=== PATIENT | female | born 1950 | race Caucasian/White ===

== ENCOUNTER 2016-11-23 05:04 | Observation (INO) ==
[2016-11-23] MEDS ORDERED: 0.9 % Sodium Chloride 1,000 ML IVC ONE (05:28)
[2016-11-23] MEDS ORDERED: Insulin Regular, Human 100 UNIT/ML IV ONE ×2 (05:28→08:24)
[2016-11-23 05:37] LABS: Basophils # 0.1 K/mcL (0.0-0.2); Basophils % 0.8 %; Eosinophils # 0.4 K/mcL (0.0-0.6); Eosinophils % 3.7 %; Hematocrit 41.2 % (35.3-44.9); Hemoglobin 13.2 g/dL (11.5-15.4); Immature Granulocytes % 0.3 % (0-4); Lymphocytes % 20.9 %; Mean Corpuscular Hemoglobin 25.1 pg (28.0-33.3); Mean Corpuscular Volume 78.5 fL (83.0-100.0); Mean Platelet Volume 9.7 fL (9.4-12.4); Monocytes # 0.7 K/mcL (0.0-1.3); Monocytes % 7.6 %; Neutrophils # 6.3 K/mcL (1.6-8.9); Platelet Count 301 K/mcL (140-400); Red Blood Count 5.25 M/mcL (3.82-4.97); Red Cell Distribution Width 13.4 % (11.5-14.5); Segmented Neutrophils % 66.7 %
[2016-11-23 05:53] LABS: Albumin 3.9 g/dL (3.5-5.0); Albumin/Globulin Ratio 1.1 (1.1-2.2); Bilirubin,Total 0.5 mg/dL (0.2-1.2); Calcium 9.6 mg/dL (8.6-10.8); Globulin 3.6 g/dL (2.4-3.5); Potassium 3.6 mEq/L (3.5-4.5); Total Protein 7.5 g/dL (6.0-8.3)
[2016-11-23] MEDS ORDERED: Ibuprofen 600 MG TABLET PO ONE (06:13)
[2016-11-23] MEDS ORDERED: Insulin Human Regular 100 UNIT in 0.9 % Sodium Chloride 100 ML IVC SCH ×2 (06:30→08:00)
[2016-11-23 07:43] LABS: Calcium 8.8 mg/dL (8.6-10.8); Potassium 3.5 mEq/L (3.5-4.5)
[2016-11-23] MEDS ORDERED: 0.9 % Sodium Chloride 500 ML IVC ONE (08:26)
[2016-11-23] MEDS ORDERED: Ketorolac 30 MG/ML VIAL IVP ONE (08:53)
--- NOTE | 2016-11-23 08:53 | Emergency Department Note ---
Disposition Clinical Impression: Uncontrolled diabetes mellitus Disposition: Admitted As Inpatient Condition: Fair Referrals: Maggie Burks CNP [Primary Care Provider] - Forms: ED Satisfaction Letter Time of Disposition: 08:54 Weakness HPI - General Chief complaint: ED Weakness Stated complaint: numbness on L side Time Seen by Provider: 11/23/16 08:47 Source: patient, family, EMS Limitations: no limitations Nursing Notes Reviewed: Yes Vital Signs Reviewed: Yes - History of Present Illness HPI Narrative: 66-year-old female brought to the ED for generalized weakness. This started 2 days ago. She has nausea. She has no appetite. Her blood sugar was elevated at home. She had a kidney stone about a week ago. She just passed it. They gave her some Ultram which made her nauseated and at times confused and dizzy. She still has some flank pain. She has no headache. She complains of occasional numbness of her face. Pain Scale: 4 - Related Data Home Medications Medication Instructions Recorded Confirmed Unable To Obtain [Unable to Obtain] 11/23/16 11/23/16 Allergies Allergy/AdvReac Type Severity Reaction Status Date / Time acetaminophen Allergy Swelling Verified 11/23/16 05:17 [From Contac Day/Night of Allergy/Sinus] Lip/Tongue/Throat dextromethorphan Allergy Swelling Verified 11/23/16 05:17 [From Contac Day/Night of Allergy/Sinus] Lip/Tongue/Throat diphenhydramine Allergy Swelling Verified 11/23/16 05:17 [From Contac Day/Night of Allergy/Sinus] Lip/Tongue/Throat pseudoephedrine Allergy Swelling Verified 11/23/16 05:17 [From Contac Day/Night of Allergy/Sinus] Lip/Tongue/Throat All systems ED: reviewed and negative except as stated. Constitutional: Denies: fever, chills, weakness, weight change Cardiovascular: Denies: chest pain, palpitations, dyspnea on exertion, edema, syncope Respiratory: Denies: cough, dyspnea, wheezes, hemoptysis, stridor Gastrointestinal: Denies: abdominal pain, nausea, vomiting, diarrhea, constipation, hematemesis, melena, hematochezia Genitourinary: Denies: dysuria, frequency, hematuria, discharge Musculoskeletal: Denies: back pain, neck pain, arthralgia, myalgia Integumentary: Denies: rash, abrasion, lesions Neurological: Reports: weakness, numbness. Denies: headache, paresthesias, confusion, abnormal gait, vertigo Psychiatric: Reports: anxiety. Denies: depression, suicidal thoughts, homicidal thoughts, auditory hallucinations, visual hallucinations Endocrine: Reports: fatigue Past Medical History - Past Medical History Medical history: Reports: asthma, diabetes, hyperlipidemia, hypertension, kidney stones, TIA Psychiatric history: Reports: anxiety - Social History Smoking Status: Never smoker Smokeless Tobacco Status: No Alcohol use: Reports: none Drug use: Reports: none Physical Exam - General Limitations: no limitations General appearance: alert, in no apparent distress - Eye Eye exam: Present: normal appearance, PERRL, EOMI - ENT ENT exam: normal exam, normal oropharynx, mucous membranes moist - Neck Neck exam: Present: normal inspection, full ROM, trachea midline - Respiratory Respiratory exam: Present: normal lung sounds bilaterally - Cardiovascular Cardiovascular exam: Present: regular rate, normal rhythm, normal heart sounds - Abdominal Exam Abdominal exam: Present: soft, tenderness, normal bowel sounds. Absent: distention, guarding, rebound, rigidity Abdominal tenderness: Present: diffuse, mild - Extremities Exam Extremities exam: Present: normal inspection, full ROM. Absent: tenderness, pedal edema - Expanded Lower Extremity Exam Neurovascular/Tendon exam: Absent: motor deficit, sensory deficit, tendon deficit - Back Exam Back exam: Present: normal inspection, full ROM. Absent: tenderness - Neurological Exam Neurological exam: Present: alert, oriented X3, CN II-XII intact - Psychiatric Psychiatric exam: Present: flat affect - Skin Skin exam: Present: warm, dry, intact, normal color Course Vital Signs Temperature 98.5 F 11/23/16 05:23 Pulse Rate 75 11/23/16 05:23 Respiratory Rate 14 11/23/16 05:23 Blood Pressure 132/64 11/23/16 05:23 O2 Sat by Pulse Oximetry 97 11/23/16 05:23 Temperature 98.5 F 11/23/16 05:23 Pulse Rate 65 11/23/16 08:46 Respiratory Rate 16 11/23/16 08:46 Blood Pressure 118/74 11/23/16 08:46 O2 Sat by Pulse Oximetry 98 11/23/16 08:46 Oxygen Delivery Oxygen Delivery Room Air Weakness - MDM Narrative Medical decision making narrative: Diagnosis. Uncontrolled diabetes mellitus Slightly acidotic Patient was given 0.9 normal saline 1000 mL bolus 2. IV Insulin R8 units given initially. Additional 3 units of Humulin R given 2 hours later. #2. Generalized fatigue and weakness. They be related to her taking.Ultram CT will be ordered Plan. Patient will be admitted for observation. - Lab Data Lab results reviewed: Yes I reviewed the patient's lab results. Result diagrams: 11/23/16 05:20 11/23/16 07:16 Lab Results 11/23/16 11/23/16 11/23/16 Range/Units 05:10 05:11 05:20 WBC 9.5 (4.3-11.1) K/mcL RBC 5.25 H (3.82-4.97) M/mcL Hgb 13.2 (11.5-15.4) g/dL Hct 41.2 (35.3-44.9) % MCV 78.5 L (83.0-100.0) fL MCH 25.1 L (28.0-33.3) pg MCHC 32.0 (31.6-35.5) g/dL RDW 13.4 (11.5-14.5) % Plt Count 301 (140-400) K/mcL MPV 9.7 (9.4-12.4) fL Immature Gran % 0.3 (0-4) % Seg Neutrophils % 66.7 % Lymphocytes % 20.9 % Monocytes % 7.6 % Eosinophils % 3.7 % Basophils % 0.8 % Neutrophils # 6.3 (1.6-8.9) K/mcL Lymphocytes # 2.0 (0.6-4.6) K/mcL Monocytes # 0.7 (0.0-1.3) K/mcL Eosinophils # 0.4 (0.0-0.6) K/mcL Basophils # 0.1 (0.0-0.2) K/mcL Sodium (136-145) mEq/L Potassium (3.5-4.5) mEq/L Chloride (98-109) mEq/L Carbon Dioxide (19-29) mEq/L BUN (7-20) mg/dL Creatinine (0.57-1.11) mg/dL Est GFR ( Amer) (> 60) Est GFR (Non-Af Amer) (> 60) BUN/Creatinine Ratio (6-26) Glucose (70-99) mg/dL POC Glucose 528 H* 461 H* (58-89) Calculated Osmolality (280-300) Calcium (8.6-10.8) mg/dL Total Bilirubin (0.2-1.2) mg/dL AST (5-34) Units/L ALT (0-55) Units/L Alkaline Phosphatase (38-126) Units/L Serum Total Protein (6.0-8.3) g/dL Albumin (3.5-5.0) g/dL Globulin (2.4-3.5) g/dL Albumin/Globulin Ratio (1.1-2.2) 11/23/16 11/23/16 11/23/16 Range/Units 05:20 06:45 06:47 WBC (4.3-11.1) K/mcL RBC (3.82-4.97) M/mcL Hgb (11.5-15.4) g/dL Hct (35.3-44.9) % MCV (83.0-100.0) fL MCH (28.0-33.3) pg MCHC (31.6-35.5) g/dL RDW (11.5-14.5) % Plt Count (140-400) K/mcL MPV (9.4-12.4) fL Immature Gran % (0-4) % Seg Neutrophils % % Lymphocytes % % Monocytes % % Eosinophils % % Basophils % % Neutrophils # (1.6-8.9) K/mcL Lymphocytes # (0.6-4.6) K/mcL Monocytes # (0.0-1.3) K/mcL Eosinophils # (0.0-0.6) K/mcL Basophils # (0.0-0.2) K/mcL Sodium 136 (136-145) mEq/L Potassium 3.6 (3.5-4.5) mEq/L Chloride 103 (98-109) mEq/L Carbon Dioxide 18 L (19-29) mEq/L BUN 18 (7-20) mg/dL Creatinine 1.49 H (0.57-1.11) mg/dL Est GFR ( Amer) 42 L (> 60) Est GFR (Non-Af Amer) 35 L (> 60) BUN/Creatinine Ratio 12 (6-26) Glucose 480 H (70-99) mg/dL POC Glucose 327 H 286 H (58-89) Calculated Osmolality 305 H (280-300) Calcium 9.6 (8.6-10.8) mg/dL Total Bilirubin 0.5 (0.2-1.2) mg/dL AST 16 (5-34) Units/L ALT 22 (0-55) Units/L Alkaline Phosphatase 74 (38-126) Units/L Serum Total Protein 7.5 (6.0-8.3) g/dL Albumin 3.9 (3.5-5.0) g/dL Globulin 3.6 H (2.4-3.5) g/dL Albumin/Globulin Ratio 1.1 (1.1-2.2) 11/23/16 Range/Units 07:16 WBC (4.3-11.1) K/mcL RBC (3.82-4.97) M/mcL Hgb (11.5-15.4) g/dL Hct (35.3-44.9) % MCV (83.0-100.0) fL MCH (28.0-33.3) pg MCHC (31.6-35.5) g/dL RDW (11.5-14.5) % Plt Count (140-400) K/mcL MPV (9.4-12.4) fL Immature Gran % (0-4) % Seg Neutrophils % % Lymphocytes % % Monocytes % % Eosinophils % % Basophils % % Neutrophils # (1.6-8.9) K/mcL Lymphocytes # (0.6-4.6) K/mcL Monocytes # (0.0-1.3) K/mcL Eosinophils # (0.0-0.6) K/mcL Basophils # (0.0-0.2) K/mcL Sodium 138 (136-145) mEq/L Potassium 3.5 (3.5-4.5) mEq/L Chloride 107 (98-109) mEq/L Carbon Dioxide 19 (19-29) mEq/L BUN 17 (7-20) mg/dL Creatinine 1.24 H (0.57-1.11) mg/dL Est GFR ( Amer) 52 L (> 60) Est GFR (Non-Af Amer) 43 L (> 60) BUN/Creatinine Ratio 14 (6-26) Glucose 314 H (70-99) mg/dL POC Glucose (58-89) Calculated Osmolality 300 (280-300) Calcium 8.8 (8.6-10.8) mg/dL Total Bilirubin (0.2-1.2) mg/dL AST (5-34) Units/L ALT (0-55) Units/L Alkaline Phosphatase (38-126) Units/L Serum Total Protein (6.0-8.3) g/dL Albumin (3.5-5.0) g/dL Globulin (2.4-3.5) g/dL Albumin/Globulin Ratio (1.1-2.2)
[2016-11-23] MEDS ORDERED: Ibuprofen 400 MG TABLET PO PRN (09:02)
[2016-11-23] MEDS ORDERED: Ondansetron 4 MG/2 ML VIAL IVP PRN (09:02)
[2016-11-23] MEDS ORDERED: Naloxone 0.4 MG/ML INJ IVP PRN (09:02)
[2016-11-23] MEDS ORDERED: Dextrose Gel 15 GM PO PRN ×2 (09:05)
[2016-11-23] MEDS ORDERED: D5% in Water 1,000 ML IVC PRN (09:05)
[2016-11-23] MEDS ORDERED: *HR* Dextrose 50 % in Water (Syg) 50 ML SYRINGE IVP PRN (09:05)
[2016-11-23 09:57] LABS: Calcium 8.6 mg/dL (8.6-10.8); Potassium 3.8 mEq/L (3.5-4.5)
[2016-11-23] MEDS: 0.9 % Sodium Chloride 1,000 ML IVC SCH ×2 (11:22→17:37)
[2016-11-23] MEDS: Insulin LISPRO 300 UNITS/3 ML VIAL SQ SCH ×2 (13:20→17:38)
--- NOTE | 2016-11-23 14:52 | Internal Med History&Physical ---
Date of Encounter: 11/23/16 Time of Encounter: 14:50 Assessment and Plan (1) Weakness Current visit: Yes Longer have to have PT see her to generally see what her gait disturbance is. (2) Uncontrolled diabetes mellitus Current visit: Yes Status: Acute Aggressive control of blood sugar diet and fluids for the time being Qualifiers: Diabetes mellitus type: type 2 Qualified Code(s): E11.65 - Type 2 diabetes mellitus with hyperglycemia Internal Medicine - H&P: HPI Chief complaint: Patient stayed weak she states she fell lost her balance and hit her face b Admitted From: Home Plans for Post Hospital Care: Home History of present illness: Ms. Quinones is a 66 year old female Blood sugars were very high at the time. Past Med Surg Social Fam HX - Past Medical History Medical history: asthma, diabetes, hyperlipidemia, hypertension, kidney stones, TIA Psychiatric history: anxiety, depression - Past Surgical History Surgical History: appendectomy, hysterectomy - Social History Smoking Status: Never smoker Smokeless Tobacco Status: No Alcohol use: none Drug use: none - Family History Mother Living Status: Cause of : diabetes Father Living Status: Internal Medicine - H&P: Meds Atorvastatin [Lipitor] 20 mg PO HS 11/23/16 [History] Ciprofloxacin [Cipro] 500 mg PO BID 11/23/16 [History] Gabapentin [Neurontin] 300 mg PO TID 11/23/16 [History] Insulin Glargine,Hum.rec.anlog [Lantus Solostar] 90 unit SQ QAM 11/23/16 [ History] Losartan/HCTZ [Hyzaar 50-12.5 Tablet] 1 each PO DAILY 11/23/16 [History] Metformin [Glucophage] 1,000 mg PO BIDWM 11/23/16 [History] Ropinirole HCl [Requip] 0.25 mg PO TID 11/23/16 [History] Allergies acetaminophen [From Contac Day/Night Allergy/Sinus] Allergy (Verified 11/23/16 05:17) Swelling of Lip/Tongue/Throat dextromethorphan [From Contac Day/Night Allergy/Sinus] Allergy (Verified 05:17) Swelling of Lip/Tongue/Throat diphenhydramine [From Contac Day/Night Allergy/Sinus] Allergy (Verified 05:17) Swelling of Lip/Tongue/Throat pseudoephedrine [From Contac Day/Night Allergy/Sinus] Allergy (Verified 05:17) Swelling of Lip/Tongue/Throat All Systems PM: A 10-system review of systems was performed and is negative for pertinent findings except as documented above in the HPI. - Constitutional Vitals: Temp Pulse Resp BP Pulse Ox 97.6 F 80 20 147/92 97 11/23/16 10:35 11/23/16 10:35 11/23/16 10:35 11/23/16 10:35 11/23/16 10:35 - Head Head exam: Present: atraumatic, normal inspection, normocephalic - Respiratory Respiratory exam: Present: CTAB. Absent: accessory muscle use, rales, rhonchi, wheezes - Cardiovascular Cardiovascular exam: Present: RRR, +S1, +S2. Absent: diastolic murmur, gallop, rubs, systolic murmur - GI/Abdominal GI/Abdominal exam: Present: normal bowel sounds, soft, no peritoneal signs. Absent: distended, tenderness Internal Med - H&P Results - Labs CBC & Chem 7: 11/23/16 05:20 11/23/16 09:30 Labs: BMP 11/23/16 09:30 Sodium 138 Potassium 3.8 Chloride 110 H Carbon Dioxide 18 L BUN 17 Creatinine 1.16 H Glucose 242 H Calcium 8.6
[2016-11-23] MEDS ORDERED: Gabapentin 300 MG CAPSULE PO SCH (15:00)
[2016-11-23] MEDS ORDERED: *HR* Metformin 500 MG TABLET PO SCH (17:00)
[2016-11-23] MEDS: Famotidine 20 MG/2 ML VIAL IVP SCH (18:02)
--- NOTE | 2016-11-23 18:12 | Electrocardiograph Report ---
[address] [place] [address] Test Date: 2016-11-23 Pat Name: Edward Quinones Department: 2000 Room: 112 Gender: F Photo Retoucher: JUANA : 1950 Requested By: Broderick Shields Order Number: [id number] Reading MD: Edil Cool MD Measurements Intervals [place] Rate: 66 P: 21 WY: 147 QRS: -17 QRSD: 100 T: 52 QT: 417 QTc: 431 Interpretive Statements SINUS RHYTHM POSSIBLE ANTERIOR MYOCARDIAL INFARCTION, PROBABLY OLD INFERIOR MYOCARDIAL INFARCTION, PROBABLY OLD Electronically Signed On 11-23-2016 18:10:21 EDT by Edil Cool MD
[2016-11-23] MEDS: Gabapentin 300 MG CAPSULE PO SCH (21:22)
[2016-11-24] MEDS: Insulin LISPRO 300 UNITS/3 ML VIAL SQ SCH ×3 (03:53→11:48)
[2016-11-24] MEDS: Famotidine 20 MG/2 ML VIAL IVP SCH (05:10)
[2016-11-24 05:40] LABS: Basophils # 0.1 K/mcL (0.0-0.2); Basophils % 0.9 %; Eosinophils # 0.5 K/mcL (0.0-0.6); Eosinophils % 5.6 %; Hematocrit 34.9 % (35.3-44.9); Immature Granulocytes % 0.2 % (0-4); Lymphocytes # 3.4 K/mcL (0.6-4.6); Lymphocytes % 38.7 %; Mean Corpuscular HGB Conc 31.8 g/dL (31.6-35.5); Mean Corpuscular Hemoglobin 25.2 pg (28.0-33.3); Mean Corpuscular Volume 79.3 fL (83.0-100.0); Mean Platelet Volume 10.8 fL (9.4-12.4); Monocytes # 0.5 K/mcL (0.0-1.3); Neutrophils # 4.3 K/mcL (1.6-8.9); Red Cell Distribution Width 13.8 % (11.5-14.5); Segmented Neutrophils % 48.6 %
[2016-11-24 05:46] LABS: Hemoglobin 11.1 g/dL (11.5-15.4); Platelet Count 204 K/mcL (140-400)
[2016-11-24 05:49] LABS: BUN/Creatinine Ratio 15 (6-26); Blood Urea Nitrogen 13 mg/dL (7-20); Calcium 8.7 mg/dL (8.6-10.8); Carbon Dioxide 17 mEq/L (19-29); Chloride 113 mEq/L (98-109); Glucose 156 mg/dL (70-99); Osmolality,Calculated 293 (280-300); Potassium 3.6 mEq/L (3.5-4.5); Sodium 140 mEq/L (136-145); eGFR For African Americans > 60 (> 60); eGFR For Non-African Americans > 60 (> 60)
[2016-11-24 06:55] VITALS: BP 137/62
[2016-11-24 07:08] LABS: Bilirubin,Urine Negative (Negative); Blood,Urine Negative (Negative); Clarity,Urine Clear (Clear); Color,Urine Yellow (Yellow); Glucose,Urine (UA) Normal (Normal); Ketones,Urine Negative (Negative); Leukocyte Esterase,Urine Small (Negative); Nitrite,Urine Negative (Negative); PH,Urine 6.5 pH Units (5.0-8.0); Protein,Urine Trace mg/dL (Neg-Trace); Urobilinogen,Urine Normal (Normal)
[2016-11-24 07:17] LABS: Bacteria,Urine Moderate per hpf (None-Few); Squamous Epithelial Cell,Urine Many per lpf (None-Few)
[2016-11-24 07:18] LABS: Mucus,Urine Few (Few); RBC,Urine 0-3 per hpf (0-3)
[2016-11-24 07:21] LABS: Transitional Epi Cells,Urine Few per hpf (None-Few)
[2016-11-24] MEDS ORDERED: *HR* Metformin 500 MG TABLET PO SCH (08:00)
[2016-11-24] MEDS: Gabapentin 300 MG CAPSULE PO SCH ×2 (08:26→15:14)
[2016-11-24] MEDS ORDERED: Insulin DETEMIR 100 UNIT/ML X5UNITS SQ SCH ×2 (09:00)
[2016-11-24] MEDS ORDERED: Losartan/HCTZ 50-12.5 TABLET PO SCH ×2 (09:00)
[2016-11-24 09:06] LABS: Hemoglobin A1C 8.8 %
--- NOTE | 2016-11-24 11:35 | Internal Med Progress Note ---
Date of Encounter: 11/24/16 Time of Encounter: 11:33 - Assessment and plan (1) Weakness Current Visit: Yes Assessment and plan: The patient is weak and states that she does have Parkinson's. We will try to increase her strength and ambulatory ability (2) Uncontrolled diabetes mellitus Current Visit: Yes Status: Acute Assessment and plan: Lunch sugars while though not perfect or much improved from admission was 156 this a.m.. Qualifiers: Diabetes mellitus type: type 2 Qualified Code(s): E11.65 - Type 2 diabetes mellitus with hyperglycemia - Time Spent With Patient less than 15 minutes - Subjective Interval history: Patient is high risk for falls. She was seen by PT and this morning and was noted to be high risk and will be transferred to [facility] for PT and OT. - Constitutional Vitals: Temp Pulse Resp BP Pulse Ox 98.0 F 55 18 137/62 97 11/24/16 06:54 11/24/16 06:54 11/24/16 06:54 11/24/16 06:54 11/24/16 06:54 - Head Head exam: Present: atraumatic, normocephalic - Neck Neck exam general surgery: Present: supple, trachea midline. Absent: lymphadenopathy - Respiratory Respiratory exam: Present: CTAB. Absent: accessory muscle use, rales, rhonchi, wheezes - Cardiovascular Cardiovascular exam: Present: RRR, +S1, +S2. Absent: diastolic murmur, gallop, rubs, systolic murmur - GI/Abdominal GI/Abdominal exam: Present: normal bowel sounds, soft, no peritoneal signs. Absent: distended, tenderness Internal Medicine: Result - Labs CBC & Chem 7: 11/24/16 05:00 11/24/16 05:00 Labs: Short CBC 11/24/16 Range/Units 05:00 WBC 8.9 (4.3-11.1) K/mcL Hgb 11.1 L D (11.5-15.4) g/dL Hct 34.9 L (35.3-44.9) % Plt Count 204 (140-400) K/mcL Neutrophils # 4.3 (1.6-8.9) K/mcL BMP 11/24/16 05:00 Sodium 140 Potassium 3.6 Chloride 113 H Carbon Dioxide 17 L BUN 13 Creatinine 0.88 Glucose 156 H Calcium 8.7 Urine 11/24/16 Range/Units Unknown Urine Color Yellow (Yellow) Urine Clarity Clear (Clear) Urine pH 6.5 (5.0-8.0) pH Units Ur Specific [place] 1.010 (1.010-1.025) Urine Protein Trace (Neg-Trace) mg/dL Urine Glucose (UA) Normal (Normal) mg/dL UTI is currently pending and they recommended sensitivity. - VTE Documentation of Mechanical Device: Graduated compression elastic hosiery Consult Discharge Plan - Plan Referrals: Maggie Burks SAMPLE TAKER OPERATOR [Primary Care Provider] -
[2016-11-24] MEDS ORDERED: *HR* OxyCODONE Immed Rel 5 MG TABLET PO PRN (14:44)
[2016-11-24] MEDS ORDERED: Insulin LISPRO 300 UNITS/3 ML VIAL SQ SCH (17:00)
== END 2016-11-24 16:58 | disposition other institution (70) ==
LOC: EMEROOGRE 05:04 → INPGRE 05:04
PROVIDERS: ADMIT Internal Medicine; ATTEND Internal Medicine

== ENCOUNTER 2016-11-24 16:01 | Inpatient (IN) ==
[2016-11-24] MEDS ORDERED: *HR* Dextrose 50 % in Water (Syg) 50 ML SYRINGE IVP PRN (17:44)
[2016-11-24] MEDS ORDERED: Dextrose Gel 15 GM PO PRN ×2 (17:44)
[2016-11-24] MEDS ORDERED: D5% in Water 1,000 ML IVC PRN (17:44)
[2016-11-24] MEDS ORDERED: Naloxone 0.4 MG/ML INJ IVP PRN (17:57)
[2016-11-24] MEDS: Insulin LISPRO 300 UNITS/3 ML VIAL SQ SCH ×2 (18:32→20:11)
[2016-11-24] MEDS: *HR* Metformin 500 MG TABLET PO SCH (18:40)
[2016-11-24] MEDS: Gabapentin 300 MG CAPSULE PO SCH (20:10)
[2016-11-24] MEDS: Ondansetron ODT 4 MG TAB.RAPDIS SL PRN (20:11)
[2016-11-24] MEDS: *HR* OxyCODONE Immed Rel 5 MG TABLET PO PRN (22:24)
[2016-11-25] MEDS: *HR* OxyCODONE Immed Rel 5 MG TABLET PO PRN ×3 (06:20→23:42)
[2016-11-25] MEDS: Losartan/HCTZ 50-12.5 TABLET PO SCH (08:32)
[2016-11-25] MEDS: *HR* Metformin 500 MG TABLET PO SCH ×2 (08:33→16:51)
[2016-11-25] MEDS: Gabapentin 300 MG CAPSULE PO SCH ×3 (08:33→20:47)
[2016-11-25] MEDS: Insulin LISPRO 300 UNITS/3 ML VIAL SQ SCH ×4 (08:35→20:47)
--- NOTE | 2016-11-25 09:22 | Internal Med Progress Note ---
Date of Encounter: 11/25/16 Time of Encounter: 09:21 - Assessment and plan (1) Weakness Current Visit: Yes Status: Chronic Assessment and plan: Medical deconditioning secondary to dehydration. Urinary tract infection. Showed significant improvement since ED admission. PTOT to work on improving strength, endurance, balance and transfer. - Time Spent With Patient less than 15 minutes - Subjective Interval history: Feels much better today. More strength. Still complains of the same flank pain. No shortness of breath. No chest pain. - Constitutional Vitals: Temp Pulse Resp BP Pulse Ox 97.4 F L 57 20 133/62 97 11/25/16 07:13 11/25/16 07:13 11/25/16 07:13 11/25/16 07:13 11/25/16 07:13 General appearance: Present: A&O X 3, pleasant, no acute distress - Respiratory Respiratory exam: Present: CTAB. Absent: accessory muscle use, rales, rhonchi, wheezes - Cardiovascular Cardiovascular exam: Present: RRR, +S1, +S2. Absent: diastolic murmur, gallop, rubs, systolic murmur - GI/Abdominal GI/Abdominal exam: Present: normal bowel sounds, soft, no peritoneal signs. Absent: distended, tenderness - Extremities Exam Extremities exam: Present: warm, radial pulses palpable and symetrical. Absent : calf tenderness, cyanotic, pedal edema - Neurological Exam Neurological exam: Present: CN II-XII intact, oriented X3, no focal deficits. Absent: pronater drift, facial droop, speech deficit - VTE Documentation of Mechanical Device: Graduated compression elastic hosiery Consult Discharge Plan - Plan Referrals: Maggie Burks, VOLUNTEER SPECIALIST [Primary Care Provider] -
[2016-11-25] MEDS: Insulin DETEMIR 100 UNIT/ML X5UNITS SQ SCH (11:32)
[2016-11-25] MEDS: Ibuprofen 400 MG TABLET PO PRN (11:32)
[2016-11-25] MEDS: Ondansetron ODT 4 MG TAB.RAPDIS SL PRN (15:20)
[2016-11-26] MEDS: Ibuprofen 400 MG TABLET PO PRN ×2 (04:21→14:19)
[2016-11-26] MEDS: *HR* Metformin 500 MG TABLET PO SCH ×2 (07:59→18:12)
[2016-11-26] MEDS: *HR* OxyCODONE Immed Rel 5 MG TABLET PO PRN ×2 (07:59→20:34)
[2016-11-26] MEDS: Gabapentin 300 MG CAPSULE PO SCH ×3 (08:00→20:34)
[2016-11-26] MEDS: Losartan/HCTZ 50-12.5 TABLET PO SCH (08:00)
[2016-11-26] MEDS: Insulin LISPRO 300 UNITS/3 ML VIAL SQ SCH ×4 (08:00→20:34)
--- NOTE | 2016-11-26 10:42 | Internal Med Progress Note ---
Date of Encounter: 11/26/16 Time of Encounter: 10:39 - Assessment and plan (1) Parkinsons Current Visit: Yes Status: Acute Assessment and plan: I can find no documentation of Parkinson's on the records. (2) Uncontrolled diabetes mellitus Current Visit: No Status: Acute Assessment and plan: sugar better control Qualifiers: Diabetes mellitus type: type 2 Qualified Code(s): E11.65 - Type 2 diabetes mellitus with hyperglycemia (3) Weakness Current Visit: Yes Status: Chronic Assessment and plan: Generalized weakness C PT OT valves - Time Spent With Patient less than 15 minutes - Subjective Interval history: No complaints of some left sided flank pain. I find no previous information about kidney stones. Also not see C and s from her urine. - Constitutional Vitals: Temp Pulse Resp BP Pulse Ox 98.3 F 63 16 108/58 93 11/26/16 07:33 11/26/16 07:33 11/26/16 07:33 11/26/16 07:33 11/26/16 07:33 General appearance: Present: A&O X 3, pleasant, no acute distress - Head Head exam: Present: atraumatic, normal inspection, normocephalic - Neck Neck exam general surgery: Present: supple, trachea midline. Absent: lymphadenopathy - Respiratory Respiratory exam: Present: CTAB. Absent: accessory muscle use, rales, rhonchi, wheezes - Cardiovascular Cardiovascular exam: Present: RRR, +S1, +S2. Absent: diastolic murmur, gallop, rubs, systolic murmur Internal Medicine: Result - Labs Labs: Pending - VTE Documentation of Mechanical Device: Graduated compression elastic hosiery Consult Discharge Plan - Plan Referrals: Maggie Burks, DEPUTY SHERIFF GENERALIST [Primary Care Provider] -
[2016-11-26] MEDS: Insulin DETEMIR 100 UNIT/ML X5UNITS SQ SCH (14:19)
[2016-11-26] MEDS: Ondansetron ODT 4 MG TAB.RAPDIS SL PRN (14:35)
[2016-11-27] MEDS: Ondansetron ODT 4 MG TAB.RAPDIS SL PRN
[2016-11-27] MEDS: Ibuprofen 400 MG TABLET PO PRN ×2 (02:32→10:35)
[2016-11-27 06:14] LABS: Basophils # 0.1 K/mcL (0.0-0.2); Basophils % 0.7 %; Eosinophils # 0.5 K/mcL (0.0-0.6); Eosinophils % 4.8 %; Hematocrit 36.9 % (35.3-44.9); Hemoglobin 11.9 g/dL (11.5-15.4); Immature Granulocytes % 0.3 % (0-4); Lymphocytes # 3.5 K/mcL (0.6-4.6); Lymphocytes % 35.2 %; Mean Corpuscular HGB Conc 32.2 g/dL (31.6-35.5); Mean Corpuscular Hemoglobin 25.8 pg (28.0-33.3); Mean Platelet Volume 10.3 fL (9.4-12.4); Monocytes # 0.6 K/mcL (0.0-1.3); Monocytes % 6.4 %; Neutrophils # 5.1 K/mcL (1.6-8.9); Platelet Count 275 K/mcL (140-400); Red Blood Count 4.61 M/mcL (3.82-4.97); Red Cell Distribution Width 13.5 % (11.5-14.5); Segmented Neutrophils % 52.6 %
[2016-11-27 06:22] LABS: BUN/Creatinine Ratio 19 (6-26); Blood Urea Nitrogen 17 mg/dL (7-20); Calcium 8.8 mg/dL (8.6-10.8); Carbon Dioxide 21 mEq/L (19-29); Chloride 110 mEq/L (98-109); Glucose 156 mg/dL (70-99); Osmolality,Calculated 297 (280-300); Potassium 3.5 mEq/L (3.5-4.5); Sodium 141 mEq/L (136-145); eGFR For African Americans > 60 (> 60); eGFR For Non-African Americans > 60 (> 60)
[2016-11-27] MEDS: Insulin LISPRO 300 UNITS/3 ML VIAL SQ SCH ×4 (08:19→20:36)
[2016-11-27] MEDS: Gabapentin 300 MG CAPSULE PO SCH ×3 (08:29→20:34)
[2016-11-27] MEDS: *HR* Metformin 500 MG TABLET PO SCH ×2 (08:29→17:39)
[2016-11-27] MEDS: Losartan/HCTZ 50-12.5 TABLET PO SCH (08:29)
[2016-11-27] MEDS: *HR* OxyCODONE Immed Rel 5 MG TABLET PO PRN ×3 (08:29→20:35)
[2016-11-27] MEDS: Insulin DETEMIR 100 UNIT/ML X5UNITS SQ SCH (08:32)
--- NOTE | 2016-11-27 14:27 | Internal Med Progress Note ---
Date of Encounter: 11/27/16 Time of Encounter: 14:27 - Assessment and plan (1) Parkinsons Current Visit: Yes Status: Acute Assessment and plan: There is no documented history of Parkinson's off to follow-up on this. Patient was ambulating in the [place] today with OT and did very well (2) Uncontrolled diabetes mellitus Current Visit: No Status: Acute Assessment and plan: Her blood sugars improve Qualifiers: Diabetes mellitus type: type 2 Qualified Code(s): E11.65 - Type 2 diabetes mellitus with hyperglycemia (3) Weakness Current Visit: Yes Status: Chronic Assessment and plan: Weaknesses improved in the staff reports to me there was no falling or teetering and her balance was good - Time Spent With Patient less than 15 minutes - Subjective Interval history: Patient is complaining of some flank pain and will give her a pain pill. And I checked the report from the laboratory and there were no organisms noted in the urine. - Constitutional Vitals: Temp Pulse Resp BP Pulse Ox 98.1 F 59 16 125/61 96 11/27/16 07:38 11/27/16 07:38 11/27/16 07:38 11/27/16 07:38 11/27/16 07:38 General appearance: Present: A&O X 3, pleasant, no acute distress - Head Head exam: Present: atraumatic, normal inspection, normocephalic - Neck Neck exam general surgery: Present: supple, trachea midline. Absent: lymphadenopathy - Respiratory Respiratory exam: Present: CTAB. Absent: accessory muscle use, rales, rhonchi, wheezes - Cardiovascular Cardiovascular exam: Present: RRR, +S1, +S2. Absent: diastolic murmur, gallop, rubs, systolic murmur - GI/Abdominal GI/Abdominal exam: Present: normal bowel sounds, soft, no peritoneal signs. Absent: distended, tenderness Internal Medicine: Result - Labs CBC & Chem 7: 11/27/16 04:51 11/27/16 04:51 Labs: Short CBC 11/27/16 Range/Units 04:51 WBC 9.8 (4.3-11.1) K/mcL Hgb 11.9 (11.5-15.4) g/dL Hct 36.9 (35.3-44.9) % Plt Count 275 (140-400) K/mcL Neutrophils # 5.1 (1.6-8.9) K/mcL BMP 11/27/16 04:51 Sodium 141 Potassium 3.5 Chloride 110 H Carbon Dioxide 21 BUN 17 Creatinine 0.88 Glucose 156 H Calcium 8.8 Lab is stable and the blood sugars are much improved - VTE Documentation of Mechanical Device: Graduated compression elastic hosiery Consult Discharge Plan - Plan Referrals: Maggie Burks, PARENT PARTNER [Primary Care Provider] -
[2016-11-27] MEDS: Famotidine 20 MG TABLET PO PRN (20:38)
[2016-11-28] MEDS: *HR* OxyCODONE Immed Rel 5 MG TABLET PO PRN ×5 (00:54→20:14)
[2016-11-28] MEDS: Insulin LISPRO 300 UNITS/3 ML VIAL SQ SCH ×4 (07:28→20:47)
[2016-11-28] MEDS: Gabapentin 300 MG CAPSULE PO SCH ×3 (07:52→20:48)
[2016-11-28] MEDS: Losartan/HCTZ 50-12.5 TABLET PO SCH (07:52)
[2016-11-28] MEDS: *HR* Metformin 500 MG TABLET PO SCH ×2 (07:52→16:23)
[2016-11-28] MEDS: Insulin DETEMIR 100 UNIT/ML X5UNITS SQ SCH (07:53)
[2016-11-28 08:45] LABS: Hemoglobin A1C 8.7 %
--- NOTE | 2016-11-28 13:18 | Internal Med Progress Note ---
Date of Encounter: 11/28/16 Time of Encounter: 13:16 - Assessment and plan (1) Parkinsons Current Visit: Yes Status: Acute Assessment and plan: I am not sure she has Parkinson's care for documentation. I will recommend neurology consult after discharge (2) Uncontrolled diabetes mellitus Current Visit: No Status: Acute Assessment and plan: Sugars are much better controlled. Hemoglobin A1c is greater than 8 I tend to think patient does not adhere to any diet at home. Sugars have gone from 4-500 down to as low as 100.. Qualifiers: Diabetes mellitus type: type 2 Qualified Code(s): E11.65 - Type 2 diabetes mellitus with hyperglycemia (3) Weakness Current Visit: Yes Status: Chronic Assessment and plan: Much improvement - Time Spent With Patient less than 15 minutes - Subjective Interval history: She is ambulating in the [place] smiling and feeling much better. She is progressed very rapidly. Anticipate discharge by end of week. - Constitutional Vitals: Temp Pulse Resp BP Pulse Ox 97.4 F L 55 16 110/64 93 11/28/16 07:00 11/28/16 07:00 11/28/16 07:00 11/28/16 07:00 11/28/16 07:00 General appearance: Present: A&O X 3, pleasant, no acute distress - Head Head exam: Present: normal inspection - Neck Neck exam general surgery: Present: supple, trachea midline. Absent: lymphadenopathy - Respiratory Respiratory exam: Present: CTAB. Absent: accessory muscle use, rales, rhonchi, wheezes - Cardiovascular Cardiovascular exam: Present: RRR, +S1, +S2. Absent: diastolic murmur, gallop, rubs, systolic murmur - GI/Abdominal GI/Abdominal exam: Present: normal bowel sounds, soft, no peritoneal signs. Absent: distended, tenderness Internal Medicine: Result - Labs CBC & Chem 7: 11/27/16 04:51 11/27/16 04:51 Labs: Lab is stable - VTE Documentation of Mechanical Device: Graduated compression elastic hosiery Consult Discharge Plan - Plan Referrals: Maggie Burks, MONIQUE [Primary Care Provider] -
[2016-11-28] MEDS: Ondansetron ODT 4 MG TAB.RAPDIS SL PRN (20:16)
[2016-11-29] MEDS: *HR* OxyCODONE Immed Rel 5 MG TABLET PO PRN ×5 (02:15→20:46)
[2016-11-29] MEDS: Insulin LISPRO 300 UNITS/3 ML VIAL SQ SCH ×4 (07:24→20:47)
[2016-11-29] MEDS: Losartan/HCTZ 50-12.5 TABLET PO SCH (09:00)
[2016-11-29] MEDS: *HR* Metformin 500 MG TABLET PO SCH ×2 (09:00→16:39)
[2016-11-29] MEDS: Gabapentin 300 MG CAPSULE PO SCH ×3 (09:00→20:47)
[2016-11-29] MEDS: Insulin DETEMIR 100 UNIT/ML X5UNITS SQ SCH (09:22)
--- NOTE | 2016-11-29 14:08 | Internal Med Progress Note ---
Date of Encounter: 11/29/16 Time of Encounter: 14:06 - Assessment and plan (1) Parkinsons Current Visit: Yes Status: Acute Assessment and plan: No evidence of this. (2) Uncontrolled diabetes mellitus Current Visit: No Status: Acute Assessment and plan: Blood sugars have been much better here so I suspect part of this is indiscretion in her diet Qualifiers: Diabetes mellitus type: type 2 Qualified Code(s): E11.65 - Type 2 diabetes mellitus with hyperglycemia (3) Weakness Current Visit: Yes Status: Chronic Assessment and plan: H is ambulating length of the [place] several times a day the weakness is much improved - Time Spent With Patient less than 15 minutes - Subjective Interval history: She is ambulating in the [place] smiling and feeling much better. She is progressed very rapidly. Anticipate discharge by end of week. Staff decided today PCC should be discharged tomorrow we will get her home health. Staff psychologist recommended to follow-up with counseling. We will call [facility] for an appointment - Constitutional Vitals: Temp Pulse Resp BP Pulse Ox 97.2 F L 65 18 123/59 96 11/29/16 07:00 11/29/16 07:00 11/29/16 07:00 11/29/16 07:00 11/29/16 07:00 General appearance: Present: A&O X 3, pleasant, no acute distress - Head Head exam: Present: atraumatic, normocephalic - Neck Neck exam general surgery: Present: supple, trachea midline. Absent: lymphadenopathy - Respiratory Respiratory exam: Present: CTAB. Absent: accessory muscle use, rales, rhonchi, wheezes - Cardiovascular Cardiovascular exam: Present: RRR, +S1, +S2. Absent: diastolic murmur, gallop, rubs, systolic murmur - GI/Abdominal GI/Abdominal exam: Present: normal bowel sounds, soft, no peritoneal signs. Absent: distended, tenderness Internal Medicine: Result - Labs CBC & Chem 7: 11/27/16 04:51 11/27/16 04:51 Labs: Labs stable - VTE Documentation of Mechanical Device: Graduated compression elastic hosiery Consult Discharge Plan - Plan Referrals: Maggie Burks, INTERCEPTOR OPERATOR [Primary Care Provider] -
--- NOTE | 2016-11-29 16:40 | Psychological Evaluation ---
Date of Encounter: 11/29/16 Time of Encounter: 11:30 History of Present Illness History of present illness: Ms. Quinones is a 66 year old female admitted to [facility] to address medical deconditioning/weakness secondary to dehydration and urinary tract infection. She was seen on this date to assess her current emotional status and possible psychological factors affecting her medical status. Past Medical History Medical history: Significant for uncontrolled diabetes. Ms. Quinones provided a more extensive history of medical problems. She reported that she suffered a stroke and that is the reason she has been hospitalized. She also reported that she has Parkinson's Disease and has been passing kidney stones. She reported that current symptoms of weakness and inability to move her legs began last at 3:30am. She reported that she was unable to walk, fell and injured her left foot and her left shoulder. Since admission, she has made gains significant improvement in her physical functioning. - Psychiatric History Additional Psychiatric History: Ms. Quinones denied a history of psychiatric hospitalization but acknowledged a long history of mental health counseling. She is not currently seeing a therapist but reported a significant amount of stress and limited social support. 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 She stated that they had been attending the quarterly Stroke Support Group through [facility] and she found this very helpful. No known history of family psychiatric or mental health disorders. Home Medications and Allergies Atorvastatin [Lipitor] 20 mg PO HS 11/23/16 [History] Ciprofloxacin [Cipro] 500 mg PO BID 11/23/16 [History] Gabapentin [Neurontin] 300 mg PO TID 11/23/16 [History] Insulin Glargine,Hum.rec.anlog [Lantus Solostar] 90 unit SQ QAM 11/23/16 [ History] Losartan/HCTZ [Hyzaar 50-12.5 Tablet] 1 each PO DAILY 11/23/16 [History] Metformin [Glucophage] 1,000 mg PO BIDWM 11/23/16 [History] Ropinirole HCl [Requip] 0.25 mg PO TID 11/23/16 [History] Allergies acetaminophen [From Contac Day/Night Allergy/Sinus] Allergy (Verified 11/23/16 05:17) Swelling of Lip/Tongue/Throat dextromethorphan [From Contac Day/Night Allergy/Sinus] Allergy (Verified 05:17) Swelling of Lip/Tongue/Throat diphenhydramine [From Contac Day/Night Allergy/Sinus] Allergy (Verified 05:17) Swelling of Lip/Tongue/Throat pseudoephedrine [From Contac Day/Night Allergy/Sinus] Allergy (Verified 05:17) Swelling of Lip/Tongue/Throat Social History - Social History Social History: and her have been for 47 years. They have one son ( age 46). She reported that her used to provide care and support for her but is needing his own care/support following multiple strokes. 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 She also mentioned that she goes to the [facility] for pool exercises. They have a person come to their home once a week to do light cleaning. Ms. Quinones reported that she and her do not have family in the area and their son is not very supportive. They belong to a yarsanism and have friends through yarsanism. - Tobacco Use Smoking Status: Never smoker - Alcohol Use Alcohol Use: none Cognitive/Emotional Assessment - Cognitive Ability Additional Findings: Ms. Quinones was alert, attentive and fully oriented. Speech was clear, effective and fluent. She was noted to speak in a high pitch voice with a "baby tone". Thought processes were logical, coherent and goal-directed. There were no signs of delusional ideation or perceptual disturbance. She was able to do rote and simple mental arithmetic. She performed within normal limits on measures of confrontational naming, auditory comprehension and sentence repetition. Mild deficit noted on a measure of delayed verbal recall. She exhibited mild signs of problems with encoding and retrieval of new information. - Emotional Status Additional Findings: Ms. Quinones was pleasant, friendly and cooperative. She was open and forthright. Mood appeared somber and she was tearful and on the verge of crying. She acknowledged that she has been under a lot of stress at home in caring for her and has limited social support. She stated that she dianne through her uatsdin jorge and prayer. She also presented as highly somatically focused and listed several medical conditions (CVA, PD, kidney stones) which she reported she has been diagnosed as having although this is not confirmed in her medical records. Assessment & Plan - Diagnosis (1) Somatoform disorder - Treatment Plan Treatment Plan/Recommendations: It is highly recommended that Ms. Quinones follow-up with outpatient mental health counseling post-discharge to assist with stress management. She is reporting a high level of interference in her daily activity due to various medical conditions that are unconfirmed/unsubstantiated in her medical record. This recommendation was discussed with Ms. Quinones and she was in agreement. Procedures - Session Time Session Start Time: 11:30 Session Stop Time: 12:00
[2016-11-29] MEDS: Famotidine 20 MG TABLET PO PRN (20:56)
[2016-11-30 07:11] VITALS: BP 112/75
[2016-11-30] MEDS: Insulin LISPRO 300 UNITS/3 ML VIAL SQ SCH ×2 (08:11→12:48)
[2016-11-30] MEDS: *HR* Metformin 500 MG TABLET PO SCH (08:45)
[2016-11-30] MEDS: Losartan/HCTZ 50-12.5 TABLET PO SCH (08:46)
[2016-11-30] MEDS: Gabapentin 300 MG CAPSULE PO SCH (08:46)
[2016-11-30] MEDS: Ibuprofen 400 MG TABLET PO PRN (08:49)
[2016-11-30] MEDS: Insulin DETEMIR 100 UNIT/ML X5UNITS SQ SCH (08:49)
--- NOTE | 2016-11-30 13:07 | Discharge Summary ---
Date of Encounter: 11/30/16 Time of Encounter: 13:05 - Discharge Diagnosis (1) Parkinsons Priority: Secondary Status: Acute Comments: There is no evidence of Parkinson's this point (2) Uncontrolled diabetes mellitus Priority: Primary Status: Acute Comments: Sugars can be labile but they are much improved overall Qualifiers: Diabetes mellitus type: type 2 Qualified Code(s): E11.65 - Type 2 diabetes mellitus with hyperglycemia (3) Weakness Priority: Primary Status: Chronic Comments: Patient is ambulating through the halls with standby only doing well. We will continue this with home health - Discharge Medications Home Medications: Atorvastatin [Lipitor] 20 mg PO HS 11/23/16 [History] Ciprofloxacin [Cipro] 500 mg PO BID 11/23/16 [History] Gabapentin [Neurontin] 300 mg PO TID 11/23/16 [History] Insulin Glargine,Hum.rec.anlog [Lantus Solostar] 90 unit SQ QAM 11/23/16 [ History] Losartan/HCTZ [Hyzaar 50-12.5 Tablet] 1 each PO DAILY 11/23/16 [History] Metformin [Glucophage] 1,000 mg PO BIDWM 11/23/16 [History] Ropinirole HCl [Requip] 0.25 mg PO TID 11/23/16 [History] Allergies/Adverse Reactions: Allergies acetaminophen [From Contac Day/Night Allergy/Sinus] Allergy (Verified 11/23/16 05:17) Swelling of Lip/Tongue/Throat dextromethorphan [From Contac Day/Night Allergy/Sinus] Allergy (Verified 05:17) Swelling of Lip/Tongue/Throat diphenhydramine [From Contac Day/Night Allergy/Sinus] Allergy (Verified 05:17) Swelling of Lip/Tongue/Throat pseudoephedrine [From Contac Day/Night Allergy/Sinus] Allergy (Verified 05:17) Swelling of Lip/Tongue/Throat Date of admission: 11/24/16 17:23 Primary care physician: Maggie Burks CNP Consults: 11/24/16 17:32 Consult to Occupational Therapy [CONS] Routine Comment: weakness Consult to Physical Therapy [CONS] Routine Comment: weakness Consult to Recreational Therapy [CONS] Routine Comment: Consult to Dictating Machine Mechanic [CONS] Routine Reason for SW Consult: discharge planning 11/27/16 17:29 Consult to Psychology [CONS] Routine Consulting Provider: Ronda Gonzáles Reason for Consult: weakness Time Notified: 16:00 Call Completed: No Discharging clinician: Reinaldo Stanley Anticipated date of discharge: 11/30/16 - Patient Status Disposition: Home Health Service Condition: Good Functional capacity at discharge: uses cane/walker Overall status at discharge: patient is progressing back to baseline - Discharge Instructions Follow Up With: Maggie Burks TRAFFIC ATTENDANT [Primary Care Provider] - - Diet and Activity Activity: increase activity as tolerated Diet: diabetic diet Interval History: Patient was seen by PT OT please see notes has much improved. Hospital course: Ms. Quinones is a 66 year old female Patient worked with therapists and has been able to ambulate without difficulty and was seen by staff securities adviser please see report. - Time Spent with Patient Total time spent providing and/or coordinating discharge services: Less than 30 minutes - Constitutional Vitals: Temp Pulse Resp BP Pulse Ox 97.9 F 55 16 112/75 96 11/30/16 07:00 11/30/16 07:00 11/30/16 07:00 11/30/16 07:00 11/30/16 07:00 General appearance: Present: A&O X 3, pleasant, no acute distress - Head Head exam: Present: atraumatic, normal inspection, normocephalic - Neck Neck exam general surgery: Present: supple, trachea midline. Absent: lymphadenopathy - Respiratory Respiratory exam: Present: CTAB. Absent: accessory muscle use, rales, rhonchi, wheezes - Cardiovascular Cardiovascular exam: Present: RRR, +S1, +S2. Absent: diastolic murmur, gallop, rubs, systolic murmur - VTE Documentation of Mechanical Device: Graduated compression elastic hosiery
--- NOTE | 2016-11-30 13:10 | Physician Discharge Referral ---
Home Health/Hosp Referral Info Transfer to: Home Health Provider in Charge Post Discharge: PCP - Diagnosis (1) Parkinsons Priority: Secondary Status: Acute (2) Uncontrolled diabetes mellitus Priority: Primary Status: Acute (3) Weakness Priority: Primary Status: Chronic - Respiratory Orders Smoking Cessation: Smoking cessation has been advised. For more information, call the [place] Tobacco Quit Line at 3-258-KKLV-NOW. - Diet/Nutrition Diet/Nutrition Orders: No Concentrated Sweets - Activity Activity Orders: Up ad amelie, Ambulate - Services Needed Following services are medically necessary services: Nursing, Physical Therapy - Transfer Medications Home Medications: Atorvastatin [Lipitor] 20 mg PO HS 11/23/16 [History] Ciprofloxacin [Cipro] 500 mg PO BID 11/23/16 [History] Gabapentin [Neurontin] 300 mg PO TID 11/23/16 [History] Insulin Glargine,Hum.rec.anlog [Lantus Solostar] 90 unit SQ QAM 11/23/16 [ History] Losartan/HCTZ [Hyzaar 50-12.5 Tablet] 1 each PO DAILY 11/23/16 [History] Metformin [Glucophage] 1,000 mg PO BIDWM 11/23/16 [History] Ropinirole HCl [Requip] 0.25 mg PO TID 11/23/16 [History] Allergies/Adverse Reactions: Allergies acetaminophen [From Contac Day/Night Allergy/Sinus] Allergy (Verified 11/23/16 05:17) Swelling of Lip/Tongue/Throat dextromethorphan [From Contac Day/Night Allergy/Sinus] Allergy (Verified 05:17) Swelling of Lip/Tongue/Throat diphenhydramine [From Contac Day/Night Allergy/Sinus] Allergy (Verified 05:17) Swelling of Lip/Tongue/Throat pseudoephedrine [From Contac Day/Night Allergy/Sinus] Allergy (Verified 05:17) Swelling of Lip/Tongue/Throat Certification: Further, I certify that my clinical findings support that this patient is homebound (i.e. absences from home require considerable and taxing effort and are for medical reasons or restorationism services or infrequently or short duration when for other reasons) because: Homebound Reason: Patient requires assistance of a person or device to safely leave home Attestation: My signature below is to certify that this patient is under my care and that I, or nurse practitioner, or a physician's assistant women's rowing coach working with me, has a face-to -face encounter with this patient.
== END 2016-11-30 14:06 | disposition home health service (06) | DRG 945 ==
LOC: INPGRE 17:23
PROVIDERS: ADMIT Internal Medicine; ATTEND Internal Medicine

== ENCOUNTER 2018-06-20 14:12 | Inpatient (IN) ==
[2018-06-20] MEDS ORDERED: *HR* OxyCODONE Immed Rel 5 MG TABLET PO PRN (18:54)
[2018-06-20] MEDS ORDERED: Dextrose Gel 15 GM/37.5 ML TUBE PO PRN ×2 (19:23)
[2018-06-20] MEDS ORDERED: *HR* Dextrose 50 % in Water (Syg) 50 ML SYRINGE IVP PRN (19:23)
[2018-06-20] MEDS ORDERED: D5% in Water 1,000 ML IVC PRN (19:23)
[2018-06-20] MEDS: Losartan/HCTZ 50-12.5 TABLET PO SCH (21:11)
[2018-06-20] MEDS: Gabapentin 300 MG CAPSULE PO SCH (21:11)
[2018-06-20] MEDS: *HR* OxyCODONE Immed Rel 5 MG TABLET PO PRN (21:12)
[2018-06-20] MEDS: Sennosides/Docusate Sodium TABLET PO SCH (21:12)
[2018-06-21] MEDS: *HR* OxyCODONE Immed Rel 5 MG TABLET PO PRN ×6 (00:30→22:54)
[2018-06-21] MEDS: *HR* Enoxaparin 30 MG/0.3 ML SYRINGE SQ SCH ×2 (05:29→18:21)
[2018-06-21 05:47] LABS: Basophils # 0.1 K/mcL (0.0-0.2); Basophils % 0.8 %; Eosinophils # 0.4 K/mcL (0.0-0.6); Eosinophils % 5.1 %; Hematocrit 39.3 % (35.3-44.9); Hemoglobin 12.7 g/dL (11.5-15.4); Immature Granulocytes % 0.3 % (0-4); Lymphocytes # 2.4 K/mcL (0.6-4.6); Lymphocytes % 27.1 %; Mean Corpuscular HGB Conc 32.3 g/dL (31.6-35.5); Mean Corpuscular Hemoglobin 29.6 pg (28.0-33.3); Mean Corpuscular Volume 91.6 fL (83.0-100.0); Mean Platelet Volume 10.5 fL (9.4-12.4); Monocytes # 0.6 K/mcL (0.0-1.3); Neutrophils # 5.2 K/mcL (1.6-8.9); Platelet Count 336 K/mcL (140-400); Red Blood Count 4.29 M/mcL (3.82-4.97); Red Cell Distribution Width 14.1 % (11.5-14.5); Segmented Neutrophils % 59.7 %
[2018-06-21 06:02] LABS: BUN/Creatinine Ratio 25 (6-26); Blood Urea Nitrogen 16 mg/dL (8-23); Calcium 9.3 mg/dL (8.6-10.3); Carbon Dioxide 26 mEq/L (23-29); Chloride 103 mEq/L (98-107); Glucose 244 mg/dL (70-105); Osmolality,Calculated 295 (280-300); Potassium 3.4 mEq/L (3.5-5.1); Sodium 138 mEq/L (136-145); eGFR For Non-African Americans > 60 (> 60)
[2018-06-21] MEDS: Losartan/HCTZ 50-12.5 TABLET PO SCH ×2 (08:12→22:53)
[2018-06-21] MEDS: Sennosides/Docusate Sodium TABLET PO SCH ×2 (08:12→22:53)
[2018-06-21] MEDS: *HR* Metformin 500 MG TABLET PO SCH ×2 (08:13→16:27)
--- NOTE | 2018-06-21 10:52 | Internal Med History&Physical ---
Addendum entered and electronically signed by Reinaldo Stanley DO 06/21/18 11:32: I have personally performed a face to face evaluation on this patient. I have reviewed and agree with the care plan. History and Exam by me shows: Original Note: Date of Encounter: 06/21/18 Time of Encounter: 10:46 Assessment and Plan (1) Thoracic compression fracture Current visit: Yes Status: Acute Patient had a T6 and T7 compression fracture that she suffered after experiencing a fall of approximately 13 steps. Per medical records patient shows minimal loss of height on her vertebral fractures no displacement. Patient shows no neurological deficits related to thoracic fractures. Patient continues to have moderate pain during mobilization. TLSO brace is in use. Physical therapy evaluation pending. Patient is continue with current plan of care. Currently pain is tolerable with current medications. Qualifiers: Encounter type: subsequent encounter Fracture type: closed Fracture healing: with routine healing Qualified Code(s): S22.000D - Wedge compression fracture of unspecified thoracic vertebra, subsequent encounter for fracture with routine healing (2) TBI (traumatic brain injury) Current visit: Yes Status: Acute Patient had suffered a TBI secondary to a fall down approximately 13 steps. Patient was treated at [facility] with her medical records stating CT scan showing possible shear-type injury to right parietal lobe. Patient has remained somewhat confused following her accident. He was uneventful at [facility]. Patient arrived at this facility be in oriented 2 but not to time. Patient's conversation at times somewhat inappropriate. Patient continues to have difficulty answering complex questions or following complex directions. No focal neurological deficits noted on exam. Patient continues to have spontaneous thoughts, during which she attempts to be up out of bed without assistance. Patient continues to require a sitter at this time. We will continue to evaluate her neurological progress. Physical therapy evaluate him pending Qualifiers: Encounter type: subsequent encounter Loss of consciousness presence/duration: with LOC of unspecified duration Qualified Code(s): S06.9X9 D - Unspecified intracranial injury with loss of consciousness of unspecified duration, subsequent encounter (3) Uncontrolled diabetes mellitus Current visit: Yes Status: Acute No acute issues. Patient's glucose remained slightly elevated on fingersticks. We will continue to cover with sliding scale insulin and evaluate patient's medication regimen. Qualifiers: Diabetes mellitus type: type 2 Glycemic state: with hyperglycemia Qualified Code(s): E11.65 - Type 2 diabetes mellitus with hyperglycemia (4) Somatoform disorder Current visit: Yes Status: Acute No acute issues at this time. Patient continues to have confusion, but likely secondary to her TBI. We will continue to monitor. Internal Medicine - H&P: HPI Chief complaint: thoracic Fracture Admitted From: Hospital to Hospital Transfer Plans for Post Hospital Care: Home History of present illness: Ms. Quinones is a 67 year old female who experienced a fall at home, reportedly falling down a flight of 13 steps. Patient was noted to have a compression fracture to T6 and T7 with minimal loss of height. Patient also had a TBI with CT of the head showing possible shearing-type injury on the right parietal lobe. Patient has reportedly been somewhat confused since her accident, likely seco ndary to TBI. Patient's recovery area hospital was been uneventful. Patient was transferred to this facility for further rehabilitation due to deconditioning secondary to her spinal fractures. Patient remains slightly confused. Oriented 2, but not to time. Patient's conversation at times is so mewhat inappropriate. Patient remains able to answer simple questions appropriately but has some difficulty following complex commands and answering complex questions. Patient complains of moderate pain to her left shoulder, stating that the pain is been there for several days but has been progressively worse. No limits to range of motion noted. No obvious deformity or injury noted to right shoulder. Patient states that she continues to have moderate pain to her mid back that increases during mobilization. TLSO brace remains in place. Patient continues with spontaneous thought process of mobilizing unassisted. Patient continues require one-on-one sitter Past Med Surg Social Fam HX - Past Medical History Medical history: asthma, diabetes, hyperlipidemia, hypertension, kidney stones, TIA Additional medical history: parkinsons Psychiatric history: anxiety, depression - Past Surgical History Surgical History: appendectomy, hysterectomy Additional surgical history: skin grafts,kidney surgery-1979, - Social History Smoking Status: Never smoker Smokeless Tobacco Status: No Alcohol use: none Drug use: none - Family History Mother Living Status: Father Living Status: Internal Medicine - H&P: Meds Gabapentin [Neurontin] 300 mg PO HS 11/23/16 [History] Insulin Glargine,Hum.rec.anlog [Lantus Solostar] 55 unit SQ QPM 11/23/16 [History] Losartan/HCTZ [Hyzaar 50-12.5 Tablet] 1 each PO BID 11/23/16 [History] metFORMIN [Glucophage] 1,000 mg PO BIDWM 11/23/16 [History] Cyclobenzaprine [Flexeril] 10 mg PO TID PRN 06/20/18 [History] Enoxaparin [Lovenox] 30 mg SQ Q12HR 06/20/18 [History] Ergocalciferol (VITAMIN D2) [Vitamin D2] 50,000 unit PO QWEEK 06/20/18 [History] OxyCODONE Immed Rel [Roxicodone 5 MG] 5 mg PO Q8HR PRN 06/20/18 [History] Allergy/AdvReac Type Severity Reaction Status Date / Time acetaminophen Allergy Swelling Verified 12/10/17 09:43 [From Contac Day/Night of Allergy/Sinus] Lip/Tongue/Throat butorphanol [From Stadol] Allergy See Verified 06/12/18 08:04 Comments dextromethorphan Allergy Swelling Verified 12/10/17 09:43 [From Contac Day/Night of Allergy/Sinus] Lip/Tongue/Throat diphenhydramine Allergy Swelling Verified 12/10/17 09:43 [From Contac Day/Night of Allergy/Sinus] Lip/Tongue/Throat pseudoephedrine Allergy Swelling Verified 12/10/17 09:43 [From Contac Day/Night of Allergy/Sinus] Lip/Tongue/Throat All Systems PM: A 10-system review of systems was performed and is negative for pertinent findings except as documented above in the HPI. - Constitutional Constitutional: as per HPI, no chills, no fever(s), no night sweats - EENT Eyes: as per HPI, no change in vision, no discharge, no pain, no photophobia Ears: no ear discharge, no ear pain, no tinnitus Nose, mouth and throat: no dysphagia, no nasal discharge, no neck pain, no sore throat - Cardiovascular Cardiovascular ROS IM: as per HPI, no chest pain, no diaphoresis, no dyspnea, no lightheadedness, no palpitations, no syncope - Respiratory Respiratory: as per HPI, no cough, no dyspnea, no wheezing, no excessive phlegm production - Gastrointestinal Gastrointestinal: as per HPI, no abdominal pain, no diarrhea, no hematemesis, no hematochezia, no melena, no nausea, no vomiting - Genitourinary Genitourinary: as per HPI, no change in urinary stream, no dysuria, no flank pain, no hematuria - Musculoskeletal Musculoskeletal ROS IM: as per HPI, no numbness, no tingling - Integumentary Integumentary IM: as per HPI, no rash, no unusual bruising - Neurological Neurological ROS: as per HPI, no confusion, no convulsions, no focal weakness, no numbness, no tingling, no tremor(s) - Hematologic/Lymphatic Hematologic/Lymphatic: no easy bruising - Constitutional Vitals: Temp Pulse Resp BP Pulse Ox 98.4 F 83 18 151/89 93 06/21/18 09:14 06/21/18 09:14 06/21/18 00:08 06/21/18 09:14 06/21/18 09:14 General appearance: Present: A&O X 2, pleasant Exam: Patient remained slightly confused been oriented 2, but not to time. Patient's conversation is somewhat appropriate, but at times she will make odd statements. Patient has difficulty answering complex questions. During exam patient had difficulty following complex directions. Patient continues to require one-on-one sitter due to spontaneous stop precedents, during which time she attempts to get up out of bed without assistance. - Head Head exam: Present: atraumatic, normocephalic - Eye Eye exam: Present: PERRL, conjuntiva pink, sclera anicteric Pupils: Present: PERRL - Neck Neck exam general surgery: Present: supple, trachea midline. Absent: lymphadenopathy - Respiratory Respiratory exam: Present: CTAB. Absent: accessory muscle use, rales, rhonchi, wheezes - Cardiovascular Cardiovascular exam: Present: RRR, +S1, +S2. Absent: diastolic murmur, gallop, rubs, systolic murmur - GI/Abdominal GI/Abdominal exam: Present: normal bowel sounds, soft, no peritoneal signs. Absent: distended, tenderness - Extremities Exam Extremities exam: Present: warm, radial pulses palpable and symmetrical. Absent: calf tenderness, cyanotic, pedal edema - Back Exam Additional comments: Patient complains of slight tenderness to mid back. No obvious injury or deformity noted. TLSO brace in place - Neurological Exam Neurological exam: Present: CN II-XII intact, no focal deficits. Absent: pronater drift, facial droop, speech deficit Additional comments: Patient remains somewhat confused been oriented 2 but not to time. Patient has mostly appropriate conversation, but then makes inappropriate statements. Hansa urban's able to answer simple questions appropriately but has difficulty answering complex questions. Patient noted to have difficulty following complex directions, as demonstrated during her finger to nose exam. Patient shows no focal motor deficits on exam. No drift. Pupils remain equal reactive to light. Speech is clear. No decreased sensation noted. No clonus - Skin Skin exam: Present: dry, intact Internal Med - H&P Results - Labs CBC & Chem 7: 06/21/18 05:10 06/21/18 05:10 Labs: Short CBC 06/21/18 Range/Units 05:10 WBC 8.7 (4.3-11.1) K/mcL Hgb 12.7 (11.5-15.4) g/dL Hct 39.3 (35.3-44.9) % Plt Count 336 (140-400) K/mcL Neutrophils # 5.2 (1.6-8.9) K/mcL BMP 06/21/18 05:10 Sodium 138 Potassium 3.4 L Chloride 103 Carbon Dioxide 26 BUN 16 Creatinine 0.64 Glucose 244 H Calcium 9.3
[2018-06-21] MEDS: Insulin DETEMIR 100 UNIT/ML X5UNITS SQ SCH (18:21)
[2018-06-21] MEDS: Gabapentin 300 MG CAPSULE PO SCH (22:53)
[2018-06-22] MEDS: *HR* OxyCODONE Immed Rel 5 MG TABLET PO PRN ×5 (02:25→20:48)
[2018-06-22] MEDS: *HR* Enoxaparin 30 MG/0.3 ML SYRINGE SQ SCH ×2 (06:35→17:36)
[2018-06-22] MEDS: Losartan/HCTZ 50-12.5 TABLET PO SCH ×2 (08:03→19:35)
[2018-06-22] MEDS: Sennosides/Docusate Sodium TABLET PO SCH ×2 (08:03→19:35)
[2018-06-22] MEDS: *HR* Metformin 500 MG TABLET PO SCH ×2 (08:04→17:35)
[2018-06-22] MEDS ORDERED: D5% in Water 1,000 ML IVC PRN (09:31)
[2018-06-22] MEDS ORDERED: Dextrose Gel 15 GM/37.5 ML TUBE PO PRN ×2 (09:31)
[2018-06-22] MEDS ORDERED: *HR* Dextrose 50 % in Water (Syg) 50 ML SYRINGE IVP PRN (09:31)
--- NOTE | 2018-06-22 11:06 | Internal Med Progress Note ---
Date of Encounter: 06/22/18 Time of Encounter: 12:00 - Subjective Interval history: Assessment and Plan (1) Thoracic compression fracture Current visit: Yes Status: Acute Overall pt has stable course here for rehab. Patient had a T6 and T7 compression fracture that she suffered after experiencing a fall of approximately 13 steps. Per medical records patient shows minimal loss of height on her vertebral fractures no displacement. Patient shows no neurological deficits related to thoracic fractures. Patient continues to have moderate pain during mobilization. TLSO brace is in use. Patient is continue with current plan of care. Currently pain is tolerable with current medications. Qualifiers: Encounter type: subsequent encounter Fracture type: closed Fracture healing: with routine healing Qualified Code(s): S22.000D - Wedge compression fracture of unspecified thoracic vertebra, subsequent encounter for fracture with routine healing (2) TBI (traumatic brain injury) Current visit: Yes Status: Acute Patient had suffered a TBI secondary to a fall down approximately 13 steps. Patient was treated at an [facility] with her medical records stating CT scan showing possible shear-type injury to right parietal lobe. Patient has remained somewhat confused following her accident. He was uneventful at [facility]. Patient arrived at this facility be in oriented 2 but not to time. Patient's conversation at times somewhat inappropriate. Patient continues to have difficulty answering complex questions or following complex directions. No focal neurological deficits noted on exam. Patient continues to have spontaneous thoughts, during which she attempts to be up out of bed without assistance. Patient continues to require a sitter at this time. We will continue to evaluate her neurological progress. Physical therapy evaluate him pending Qualifiers: Encounter type: subsequent encounter Loss of consciousness presence/duration: with LOC of unspecified duration Qualified Code(s): S06.9X9D - Unspecified intracranial injury with loss of consciousness of unspecified duration, subsequent encounter (3) Uncontrolled diabetes mellitus Current visit: Yes Status: Acute No acute issues. Patient's glucose remained slightly elevated on fingersticks. We will continue to cover with sliding scale insulin and evaluate patient's medication regimen. Qualifiers: Diabetes mellitus type: type 2 Glycemic state: with hyperglycemia Qualified Code(s): E11.65 - Type 2 diabetes mellitus with hyperglycemia (4) Somatoform disorder Current visit: Yes Status: Acute No acute issues at this time. Patient continues to have confusion, but likely secondary to her TBI. We will continue to monitor. Internal Medicine - H&P: HPI Chief complaint: thoracic Fracture Admitted From: Hospital to Hospital Transfer Plans for Post Hospital Care: Home History of present illness: Ms. Quinones is a 67 year old female who experienced a fall at home, reportedly falling down a flight of 13 steps. Patient was noted to have a compression fracture to T6 and T7 with minimal loss of height. Patient also had a TBI with CT of the head showing possible shearing-type injury on the right parietal lobe. Patient has reportedly been somewhat confused since her accident, likely secondary to TBI. Patient's recovery area hospital was been uneventful. Patient was transferred to this facility for further rehabilitation due to deconditioning secondary to her spinal fractures. Patient remains slightly confused. Oriented 2, but not to time. Patient's conversation at times is somewhat inappropriate. Patient remains able to answer simple questions appropriately but has some difficulty following complex commands and answering complex questions. Patient complains of moderate pain to her left shoulder, s tating that the pain is been there for several days but has been progressively worse. No limits to range of motion noted. No obvious deformity or injury noted to right shoulder. Patient states that she continues to have moderate pain to her mid back that increases during mobilization. TLSO brace remains in place. Patient continues with spontaneous thought process of mobilizing unassisted. Patient continues require one-on-one sitter Gabapentin [Neurontin] 300 mg PO HS 11/23/16 [History] Insulin Glargine,Hum.rec.anlog [Lantus Solostar] 55 unit SQ QPM 11/23/16 [Hi story] Losartan/HCTZ [Hyzaar 50-12.5 Tablet] 1 each PO BID 11/23/16 [History] metFORMIN [Glucophage] 1,000 mg PO BIDWM 11/23/16 [History] Cyclobenzaprine [Flexeril] 10 mg PO TID PRN 06/20/18 [History] Enoxaparin [Lovenox] 30 mg SQ Q12HR 06/20/18 [History] Ergocalciferol (VITAMIN D2) [Vitamin D2] 50,000 unit PO QWEEK 06/20/18 [History] OxyCODONE Immed Rel [Roxicodone 5 MG] 5 mg PO Q8HR PRN 06/20/18 [History] Allergy/AdvReac Type Severity Reaction Status Date / Time acetaminophen Allergy Swelling Verified 12/10/17 09:43 [From Contac Day/Night of Allergy/Sinus] Lip/Tongue/Throat butorphanol [From Stadol] Allergy See Verified 06/12/18 08:04 Comments dextromethorphan Allergy Swelling Verified 12/10/17 09:43 [From Contac Day/Night of Allergy/Sinus] Lip/Tongue/Throat diphenhydramine Allergy Swelling Verified 12/10/17 09:43 [From Contac Day/Night of Allergy/Sinus] Lip/Tongue/Throat pseudoephedrine Allergy Swelling Verified 12/10/17 09:43 [From Contac Day/Night of Allergy/Sinus] Lip/Tongue/Throat EXAM General appearance: Present: WF alert responsive not oriented Exam: During exam patient had difficulty following complex directions. Patient continues to require one-on-one sitter due to spontaneous stop precedents, during which time she attempts to get up out of bed without assistance. - Neck Neck exam general surgery: Present: supple, trachea midline. Absent: lymphadenopathy - Respiratory Respiratory exam: Present: CTAB. Absent: accessory muscle use, rales, rhonchi, wheezes - Cardiovascular Cardiovascular exam: Present: RRR, +S1, +S2. Absent: diastolic murmur, gallop, rubs, systolic murmur - GI/Abdominal GI/Abdominal exam: Present: normal bowel sounds, soft, no peritoneal signs. Absent: distended, tenderness - Extremities Exam Extremities exam: Present: warm, radial pulses palpable and symmetrical. Absent: calf tenderness, cyanotic, pedal edema - Back Exam Additional comments: Patient complains of slight tenderness to mid back. No obvious injury or deformity noted. TLSO brace in place - Neurological Exam Neurological exam: Present: CN II-XII intact, no focal deficits. Absent: pronater drift, facial droop, speech deficit Patient's able to answer simple questions appropriately but has difficulty answering complex questions. Patient noted to have difficulty following complex directions, as demonstrated during her finger to nose exam. Patient shows no focal motor deficits on exam. No drift. Pupils remain equal reactive to light. Speech is clear. No decreased sensation noted. No clonus - Constitutional Vitals: Temp Pulse Resp BP Pulse Ox 98.3 F 95 16 132/84 96 06/22/18 07:31 06/22/18 07:31 06/22/18 07:31 06/22/18 07:31 06/22/18 07:31 General appearance: Present: A&O X 2, pleasant Internal Medicine: Result - Labs CBC & Chem 7: 06/21/18 05:10 06/21/18 05:10 - Impressions Impressions Humerus X-Ray 06/21/18 09:58 IMPRESSION: No acute bony injury. Mild arthritic change left shoulder. D/ / Tushar Weston MD / Tushar Weston MD Interpreting Provider: Tushar Weston MD Consult Discharge Plan - Plan Referrals: Maggie Burks CNP [Primary Care Provider] -
[2018-06-22] MEDS: Insulin LISPRO 300 UNITS/3 ML VIAL SQ SCH ×3 (12:01→19:39)
[2018-06-22] MEDS: Insulin DETEMIR 100 UNIT/ML X5UNITS SQ SCH (17:36)
[2018-06-22] MEDS: Gabapentin 300 MG CAPSULE PO SCH (19:35)
[2018-06-23] MEDS: *HR* OxyCODONE Immed Rel 5 MG TABLET PO PRN ×5 (02:59→20:31)
[2018-06-23] MEDS: *HR* Enoxaparin 30 MG/0.3 ML SYRINGE SQ SCH ×2 (06:39→18:12)
[2018-06-23] MEDS: *HR* Metformin 500 MG TABLET PO SCH ×2 (08:17→16:21)
[2018-06-23] MEDS: Losartan/HCTZ 50-12.5 TABLET PO SCH ×2 (08:18→20:31)
[2018-06-23] MEDS: Sennosides/Docusate Sodium TABLET PO SCH ×2 (08:18→20:31)
[2018-06-23] MEDS: Insulin LISPRO 300 UNITS/3 ML VIAL SQ SCH ×4 (08:20→20:30)
--- NOTE | 2018-06-23 12:12 | Internal Med Progress Note ---
Addendum entered and electronically signed by Arthur Curiel MD 06/23/18 14:40: Somewhat of an inappropriate affect but she seems to relate. She is tired all the time and wishes she he had out of bed. She has no acute issues, no focal changes. Patient has no complaint of chest discomfort, dyspnea, orthopnea, palpitations, nausea or vomiting, constipation or diarrhea, other changes in bowel habits, difficulty with urination, rash or itching, or other new complaints, except as mentioned above. Review of systems is otherwise negative. I discussed management of her care with nursing staff. Original Note: Date of Encounter: 06/23/18 Time of Encounter: 12:11 - Assessment and plan (1) Thoracic compression fracture Current Visit: Yes Status: Acute Assessment and plan: No acute issues. No acute neurological deficits noted on exam. Patient continues to complain of moderate pain to her back which increases with mobilization. TLSO brace and use when up out of bed. No deformity or obvious injury noted to back during exam. No tenderness on palpation. We will continue with physical therapy and current plan of care. Qualifiers: Encounter type: subsequent encounter Fracture type: closed Fracture healing: with routine healing Qualified Code(s): S22.000D - Wedge compression fracture of unspecified thoracic vertebra, subsequent encounter for fracture with routine healing (2) TBI (traumatic brain injury) Current Visit: Yes Status: Acute Assessment and plan: Patient remains somewhat confused with poor short-term memory recall. Patient continues to frequently attempt to climb up out of bed without assistance remains a fall risk. Patient continues with Sitter in place. No other acute neurological deficits noted on exam. We will continue with current plan of care and therapy Qualifiers: Encounter type: subsequent encounter Loss of consciousness presence/duration: with LOC of unspecified duration Qualified Code(s): S06.9X9D - Unspecified intracranial injury with loss of consciousness of unspecified duration, subsequent encounter (3) Uncontrolled diabetes mellitus Current Visit: Yes Status: Acute Assessment and plan: Glucose remains slightly elevated with occasional peaks greater than 250. We will continue to cover with sliding scale and will review patient's long-acting insulin coverage. Qualifiers: Diabetes mellitus type: type 2 Glycemic state: with hyperglycemia Qualified Code(s): E11.65 - Type 2 diabetes mellitus with hyperglycemia (4) Somatoform disorder Current Visit: Yes Status: Acute Assessment and plan: No acute issues at this time. Patient has remained cooperative and interacting well with staff. We will continue with current medications - Time Spent With Patient less than 15 minutes - Subjective Interval history: Patient appears relaxed, but continues to complain of moderate pain to her left upper arm. Patient has continued pain since arrival at this facility. X-ray obtained of left humerus showed no acute issues. EKG was obtained which shows no ischemia. No obvious injury or deformity noted to her left shoulder or arm. Patient does complain of slight pain during abduction of left shoulder. Otherwise patient denies any acute issues. Patient continues to appear oriented, but continues to occasionally come across with very odd conversation. Patient continues to require sitter due to poor short-term memory. Patient continues to attempt to get up out of bed without assistance. - Constitutional Vitals: Temp Pulse Resp BP Pulse Ox 98.3 F 92 18 135/81 98 06/23/18 08:05 06/23/18 08:05 06/23/18 08:05 06/23/18 08:05 06/23/18 08:05 General appearance: Present: A&O X 2, pleasant Exam: Oriented 2 but not to name. Conversation mostly is appropriate, but patient at times becomes across with inappropriate statements. Patient continues to have some difficulty following complex directions or answer complex questions. - Head Head exam: Present: atraumatic, normocephalic - Eye Eye exam: Present: PERRL, conjuntiva pink, sclera anicteric Pupils: Present: PERRL - Neck Neck exam general surgery: Present: supple, trachea midline. Absent: lymphadenopathy - Respiratory Respiratory exam: Present: CTAB. Absent: accessory muscle use, rales, rhonchi, wheezes - Cardiovascular Cardiovascular exam: Present: RRR, +S1, +S2. Absent: diastolic murmur, gallop, rubs, systolic murmur - GI/Abdominal GI/Abdominal exam: Present: normal bowel sounds, soft, no peritoneal signs. Absent: distended, tenderness - Extremities Exam Extremities exam: Present: warm, radial pulses palpable and symmetrical. Absent: calf tenderness, cyanotic, pedal edema Additional comments: Complaint of pain to left shoulder. No obvious injury or deformity noted. Slight pain on abduction on left shoulder. - Back Exam Additional comments: Complaint of pain to mid back. No obvious injury or deformity noted. No step- offs noted. No tenderness on palpation. TLSO brace available - Neurological Exam Neurological exam: Present: CN II-XII intact. Absent: pronater drift, facial droop, speech deficit Additional comments: Patient continues to be somewhat confused. Oriented 2 but not to time. Conversation is mostly appropriate with occasional on tangents. No focal muscle or sensory deficits noted on exam. Continued pain to thoracic area at site of fractures - Skin Skin exam: Present: dry, intact Internal Medicine: Result - Labs CBC & Chem 7: 06/21/18 05:10 06/21/18 05:10 Consult Discharge Plan - Plan Referrals: Maggie Burks, REMEDIAL PROJECT MANAGER [Primary Care Provider] -
[2018-06-23] MEDS: Insulin DETEMIR 100 UNIT/ML X5UNITS SQ SCH (18:13)
[2018-06-23] MEDS: Gabapentin 300 MG CAPSULE PO SCH (20:31)
[2018-06-24] MEDS: *HR* OxyCODONE Immed Rel 5 MG TABLET PO PRN ×4 (00:09→19:00)
[2018-06-24] MEDS: *HR* Enoxaparin 30 MG/0.3 ML SYRINGE SQ SCH ×2 (05:51→16:34)
[2018-06-24 06:20] LABS: Hematocrit 40.1 % (35.3-44.9); Hemoglobin 12.7 g/dL (11.5-15.4); Mean Corpuscular HGB Conc 31.7 g/dL (31.6-35.5); Mean Corpuscular Hemoglobin 29.6 pg (28.0-33.3); Mean Corpuscular Volume 93.5 fL (83.0-100.0); Mean Platelet Volume 11.8 fL (9.4-12.4); Platelet Count 247 K/mcL (140-400); Red Blood Count 4.29 M/mcL (3.82-4.97); Red Cell Distribution Width 14.2 % (11.5-14.5)
[2018-06-24 06:33] LABS: Alanine Aminotransferase 15 Units/L (7-52); Albumin 3.6 g/dL (3.5-5.7); Albumin/Globulin Ratio 1.3 (1.1-2.2); Alkaline Phosphatase 79 Units/L (34-104); Aspartate Amino Transferase 19 Units/L (13-39); BUN/Creatinine Ratio 33 (6-26); Bilirubin,Total 0.3 mg/dL (0.3-1.0); Blood Urea Nitrogen 27 mg/dL (8-23); Calcium 9.4 mg/dL (8.6-10.3); Carbon Dioxide 26 mEq/L (23-29); Chloride 104 mEq/L (98-107); Globulin 2.8 g/dL (2.4-3.5); Glucose 165 mg/dL (70-105); Magnesium 1.4 mg/dL (1.6-2.6); Osmolality,Calculated 295 (280-300); Potassium 3.7 mEq/L (3.5-5.1); Sodium 138 mEq/L (136-145); Total Protein 6.4 g/dL (6.4-8.9); eGFR For Non-African Americans > 60 (> 60)
[2018-06-24] MEDS: Sennosides/Docusate Sodium TABLET PO SCH ×2 (08:25→22:00)
[2018-06-24] MEDS: Losartan/HCTZ 50-12.5 TABLET PO SCH ×2 (08:25→22:00)
[2018-06-24] MEDS: *HR* Metformin 500 MG TABLET PO SCH ×2 (08:25→16:34)
[2018-06-24] MEDS: Insulin LISPRO 300 UNITS/3 ML VIAL SQ SCH ×4 (08:26→21:59)
--- NOTE | 2018-06-24 11:26 | Internal Med Progress Note ---
Addendum entered and electronically signed by Arthur Curiel MD 06/26/18 08:36: I have personally performed a face to face evaluation on this patient. I have r eviewed and agree with the care plan. History and Exam by me shows: For schedule and/or computer reasons, this note is a late entry. Patient was seen on the date of the initial note. Discussed care with other providers and/or nursing. Patient is with inappropriate responses he had better than before, per nursing. Patient has no complaint of chest discomfort, dyspnea, orthopnea, palpitations, nausea or vomiting, constipation or diarrhea, other changes in bowel habits, difficulty with urination, rash or itching, or other new complaints, except as mentioned above. Review of systems is otherwise negative. Examination: (Except as mentioned above): General: In no apparent distress. Alert and oriented 3. Nondiaphoretic. Head: Atraumatic and normocephalic. Respiratory: No use of accessory muscles. Lungs are clear throughout. Normal airflow. Cardiovascular: Regular rate and rhythm without murmur appreciated. Abdomen: Bowel sounds are normal. No hepatosplenomegaly mass or tenderness appreciated. Obese and therefore difficult to palpate deeply. Extremities: No cyanosis clubbing or edema. Skin: Warm and non-diaphoretic with no new lesions noted. Original Note: Date of Encounter: 06/24/18 Time of Encounter: 11:24 - Assessment and plan (1) Thoracic compression fracture Current Visit: Yes Status: Acute Assessment and plan: Follow-up with surgeon as scheduled. Pain controlled with current medication. Continue PT and OT. Will follow progress. Qualifiers: Encounter type: subsequent encounter Fracture type: closed Fracture healing: with routine healing Qualified Code(s): S22.000D - Wedge compression fracture of unspecified thoracic vertebra, subsequent encounter for fracture with routine healing (2) Hypomagnesemia Current Visit: Yes Status: Acute Assessment and plan: Continue magnesium supplements. Will follow labs. (3) Uncontrolled diabetes mellitus Current Visit: Yes Status: Acute Assessment and plan: Continue fingerstick blood sugar. Will monitor. Continue insulin coverage as needed. Qualifiers: Diabetes mellitus type: type 2 Glycemic state: with hyperglycemia Qualified Code(s): E11.65 - Type 2 diabetes mellitus with hyperglycemia (4) TBI (traumatic brain injury) Current Visit: Yes Status: Acute Assessment and plan: Poor short-term memory recall. Assist as needed. Qualifiers: Encounter type: subsequent encounter Loss of consciousness presence/duration: with LOC of unspecified duration Qualified Code(s): S06.9X9D - Unspecified intracranial injury with loss of consciousness of u nspecified duration, subsequent encounter - Time Spent With Patient less than 15 minutes - Subjective Interval history: Participating well with therapy. Patient states pain is controlled with current medication. Maintaining appetite and hydration. States last bowel movement was prior to admission here. Has been drinking current juice with each meal. Discussed ordering more medications for bowels. - Constitutional Vitals: Temp Pulse Resp BP Pulse Ox 98.6 F 90 16 138/82 94 06/24/18 07:07 06/24/18 07:07 06/24/18 07:07 06/24/18 07:07 06/24/18 07:07 General appearance: Present: cooperative, A&O X 2, pleasant, no acute distress, answers questions appropriately - Head Head exam: Present: atraumatic, normocephalic - Eye Eye exam: Present: PERRL, conjuntiva pink, sclera anicteric Pupils: Present: PERRL - Neck Neck exam general surgery: Present: supple, trachea midline. Absent: lymphaden opathy - Respiratory Respiratory exam: Present: CTAB. Absent: accessory muscle use, rales, rhonchi, wheezes - Cardiovascular Cardiovascular exam: Present: RRR, +S1, +S2. Absent: diastolic murmur, gallop, rubs, systolic murmur - GI/Abdominal GI/Abdominal exam: Present: normal bowel sounds, soft, no peritoneal signs. Absent: distended, tenderness - Extremities Exam Extremities exam: Present: warm, radial pulses palpable and symmetrical. A bsent: calf tenderness, cyanotic, pedal edema - Neurological Exam Neurological exam: Present: CN II-XII intact, oriented X3, no focal deficits. Absent: pronater drift, facial droop, speech deficit - Skin Skin exam: Present: dry, intact Internal Medicine: Result - Labs CBC & Chem 7: 06/24/18 05:55 06/24/18 05:55 Labs: Short CBC 06/24/18 Range/Units 05:55 WBC 8.7 (4.3-11.1) K/mcL Hgb 12.7 (11.5-15.4) g/dL Hct 40.1 (35.3-44.9) % Plt Count 247 (140-400) K/mcL BMP 06/24/18 05:55 Sodium 138 Potassium 3.7 Chloride 104 Carbon Dioxide 26 BUN 27 H Creatinine 0.82 Glucose 165 H Calcium 9.4 Liver Function 06/24/18 Range/Units 05:55 Total Bilirubin 0.3 (0.3-1.0) mg/dL AST 19 (13-39) Units/L ALT 15 (7-52) Units/L Alkaline Phosphatase 79 (34-104) Units/L Albumin 3.6 (3.5-5.7) g/dL Consult Discharge Plan - Plan Referrals: Maggie Burks CNP [Primary Care Provider] -
[2018-06-24 13:35] LABS: Estimated Average Glucose 192 mg/dl; Hemoglobin A1C 8.3 %
[2018-06-24] MEDS: tiZANidine 4 MG TABLET PO PRN ×2 (15:01→22:00)
[2018-06-24] MEDS: Insulin DETEMIR 100 UNIT/ML X5UNITS SQ SCH (16:40)
[2018-06-24] MEDS: Gabapentin 300 MG CAPSULE PO SCH (22:00)
[2018-06-25] MEDS: *HR* Enoxaparin 30 MG/0.3 ML SYRINGE SQ SCH ×2 (05:45→16:45)
[2018-06-25] MEDS: *HR* OxyCODONE Immed Rel 5 MG TABLET PO PRN ×3 (05:46→21:36)
[2018-06-25] MEDS: tiZANidine 4 MG TABLET PO PRN ×2 (07:56→16:44)
[2018-06-25] MEDS: *HR* Metformin 500 MG TABLET PO SCH ×2 (07:56→16:45)
[2018-06-25] MEDS: Losartan/HCTZ 50-12.5 TABLET PO SCH ×2 (07:56→21:35)
[2018-06-25] MEDS: Sennosides/Docusate Sodium TABLET PO SCH ×2 (07:56→21:38)
[2018-06-25] MEDS: Insulin LISPRO 300 UNITS/3 ML VIAL SQ SCH ×4 (07:56→21:35)
--- NOTE | 2018-06-25 08:15 | Electrocardiograph Report ---
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
--- NOTE | 2018-06-25 12:09 | Internal Med Progress Note ---
Addendum entered and electronically signed by Arthur Curiel MD 06/26/18 08:37: I have personally performed a face to face evaluation on this patient. I have r eviewed and agree with the care plan. History and Exam by me shows: The patient was evaluated by me yesterday but the note was not complete. This documentation is being completed today for that reason. Patient is pleased that she slept better last night. She is otherwise doing well. Discussed care with other providers and/or nursing. Patient has no complaint of chest discomfort, dyspnea, orthopnea, palpitations, nausea or vomiting, constipation or diarrhea, other changes in bowel habits, difficulty with urination, rash or itching, or other new complaints, except as mentioned above. Review of systems is otherwise negative. Examination: (Except as mentioned above): General: In no apparent distress. Alert and oriented 3. Nondiaphoretic. Head: Atraumatic and normocephalic. Respiratory: No use of accessory muscles. Lungs are clear throughout. Normal airflow. Cardiovascular: Regular rate and rhythm without murmur appreciated. Abdomen: Bowel sounds are normal. No hepatosplenomegaly mass or tenderness appreciated. Obese and therefore difficult to palpate deeply. Extremities: No cyanosis clubbing or edema. Skin: Warm and non-diaphoretic with no new lesions noted. Original Note: Date of Encounter: 06/25/18 Time of Encounter: 12:06 - Assessment and plan (1) Thoracic compression fracture Current Visit: Yes Status: Acute Assessment and plan: Follow-up with surgeon as scheduled. Pain controlled with current medication. Continue PT and OT. Will follow progress. brace on when up. Qualifiers: Encounter type: subsequent encounter Fracture type: closed Fracture healing: with routine healing Qualified Code(s): S22.000D - Wedge compression fracture of unspecified thoracic vertebra, subsequent encounter for fracture with routine healing (2) Hypomagnesemia Current Visit: Yes Status: Acute Assessment and plan: Continue magnesium supplements. improving to 1.5. Will follow labs. (3) Uncontrolled diabetes mellitus Current Visit: Yes Status: Acute Assessment and plan: Continue fingerstick blood sugar. Will monitor. Continue insulin coverage as needed. Qualifiers: Diabetes mellitus type: type 2 Glycemic state: with hyperglycemia Qualified Code(s): E11.65 - Type 2 diabetes mellitus with hyperglycemia (4) TBI (traumatic brain injury) Current Visit: Yes Status: Acute Qualifiers: Encounter type: subsequent encounter Loss of consciousness presence/duration: with LOC of unspecified duration Qualified Code(s): S06.9X9 D - Unspecified intracranial injury with loss of consciousness of unspecified duration, subsequent encounter - Time Spent With Patient less than 15 minutes - Subjective Interval history: Participating well with therapy. Patient states pain has improved with increasing pain medication and adding tizanidine. Maintaining appetite and hydration. had BM this am. staff reports pt confused at times through the night. - Constitutional Vitals: Temp Pulse Resp BP Pulse Ox 98.0 F 85 18 140/81 96 06/25/18 07:14 06/25/18 07:14 06/25/18 07:14 06/25/18 07:14 06/25/18 07:14 General appearance: Present: cooperative, A&O X 2, pleasant, no acute distress, answers questions appropriately - Head Head exam: Present: atraumatic, normocephalic - Eye Eye exam: Present: PERRL, conjuntiva pink, sclera anicteric Pupils: Present: PERRL - Neck Neck exam general surgery: Present: supple, trachea midline. Absent: lymphadenopathy - Respiratory Respiratory exam: Present: CTAB. Absent: accessory muscle use, rales, rhonchi, wheezes - Cardiovascular Cardiovascular exam: Present: RRR, +S1, +S2. Absent: diastolic murmur, gallop, rubs, systolic murmur - GI/Abdominal GI/Abdominal exam: Present: normal bowel sounds, soft, no peritoneal signs. Absent: distended, tenderness - Extremities Exam Extremities exam: Present: warm, radial pulses palpable and symmetrical. Absent: calf tenderness, cyanotic, pedal edema - Neurological Exam Neurological exam: Present: CN II-XII intact, oriented X3, no focal deficits. Absent: pronater drift, facial droop, speech deficit - Skin Skin exam: Present: dry, intact Internal Medicine: Result - Labs CBC & Chem 7: 06/24/18 05:55 06/24/18 05:55 Consult Discharge Plan - Plan Referrals: Maggie Burks, TESTING MANAGER [Primary Care Provider] -
[2018-06-25] MEDS: Insulin DETEMIR 100 UNIT/ML X5UNITS SQ SCH (16:45)
[2018-06-25] MEDS: Gabapentin 300 MG CAPSULE PO SCH (21:36)
[2018-06-26] MEDS: *HR* Enoxaparin 30 MG/0.3 ML SYRINGE SQ SCH (05:29)
[2018-06-26 07:22] VITALS: BP 100/62
[2018-06-26] MEDS: Sennosides/Docusate Sodium TABLET PO SCH (07:43)
[2018-06-26] MEDS: Losartan/HCTZ 50-12.5 TABLET PO SCH (07:43)
[2018-06-26] MEDS: *HR* Metformin 500 MG TABLET PO SCH (07:44)
[2018-06-26] MEDS: *HR* OxyCODONE Immed Rel 5 MG TABLET PO PRN (07:44)
[2018-06-26] MEDS: Insulin LISPRO 300 UNITS/3 ML VIAL SQ SCH ×2 (07:54→13:01)
--- NOTE | 2018-06-26 10:42 | Internal Med Progress Note ---
Addendum entered and electronically signed by Arthur Curiel MD 06/26/18 10:56: per Mark, she does not need to have her abdominal brace, after surgery. This will be discontinued. Addendum entered and electronically signed by Arthur Curiel MD 06/26/18 1 0:49: I have personally performed a face to face evaluation on this patient. I have reviewed and agree with the care plan. History and Exam by me shows: Patient states that she has not had a bowel movement in 2 weeks (???). She also wants a muscle relaxant but states she is unable to keep this from nurses. I told her we would investigate. She is having a lot more pain today in her back. She denies other problems. Discussed care with other providers and/or nursing. Patient has no complaint of chest discomfort, dyspnea, orthopnea, palpitations, nausea or vomiting, constipation or diarrhea, other changes in bowel habits, difficulty with urination, rash or itching, or other new complaints, except as mentioned above. Review of systems is otherwise negative. Examination: (Except as mentioned above): General: In no apparent distress. Alert and oriented 3. Nondiaphoretic. Head: Atraumatic and normocephalic. Respiratory: No use of accessory muscles. Lungs are clear throughout. Normal airflow. Cardiovascular: Regular rate and rhythm without murmur appreciated. Abdomen: Bowel sounds are normal. No hepatosplenomegaly mass or tenderness appreciated. Obese and therefore difficult to palpate deeply. Extremities: No cyanosis clubbing or edema. Skin: Warm and non-diaphoretic with no new lesions noted. Original Note: Date of Encounter: 06/26/18 Time of Encounter: 10:39 - Assessment and plan (1) Thoracic compression fracture Current Visit: Yes Status: Acute Assessment and plan: No acute issues. No acute neurological deficits noted on exam. Patient continues to complain of moderate pain to her back which increases with mobilization. TLSO brace and use when up out of bed. No deformity or obvious injury noted to back during exam. No tenderness on palpation. We will continue with physical therapy and current plan of care. Qualifiers: Encounter type: subsequent encounter Fracture type: closed Fracture healing: with routine healing Qualified Code(s): S22.000D - Wedge compression fracture of unspecified thoracic vertebra, subsequent encounter for fracture with routine healing (2) TBI (traumatic brain injury) Current Visit: Yes Status: Acute Assessment and plan: Patient remains somewhat confused with poor short-term memory recall. Patient continues to frequently attempt to climb up out of bed without assistance remains a fall risk. Patient continues with Sitter in place. No other acute neurological deficits noted on exam. We will continue with current plan of care and therapy Qualifiers: Encounter type: subsequent encounter Loss of consciousness presence/durat ion: with LOC of unspecified duration Qualified Code(s): S06.9X9D - Unspecified intracranial injury with loss of consciousness of unspecified duration, subsequent encounter (3) Uncontrolled diabetes mellitus Current Visit: Yes Status: Acute Assessment and plan: Glucose levels have been fairly well-controlled with current sliding scale. Patient noted to have multiple readings stem 100. We will decrease Levemir insulin to 55 units. Qualifiers: Diabetes mellitus type: type 2 Glycemic state: with hyperglycemia Qualified Code(s): E11.65 - Type 2 diabetes mellitus with hyperglycemia (4) Somatoform disorder Current Visit: Yes Status: Acute Assessment and plan: No acute issues at this time. Patient has remained cooperative and interacting well with staff. Consult with psychiatry pending. We will continue with current medications - Time Spent With Patient less than 15 minutes - Subjective Interval history: Patient appears relaxed, but continues to complain of slight pain to her left upper arm. Recent X-ray obtained of left humerus and EKG showed no acute issues. Otherwise patient denies any acute issues and states that her pain has been well controlled with current pain meds. Patient continues to appear oriented, but continues to occasionally come across with very odd conversation. Patient continues to require sitter due to poor short-term memory. Patient continues to attempt to get up out of bed without assistance, requiring a sitter. TLSO brace in use when OOB. Observed ambulating with walker with minimal assist. - Constitutional Vitals: Temp Pulse Resp BP Pulse Ox 97.9 F 68 17 100/62 97 06/26/18 07:21 06/26/18 07:21 06/26/18 07:21 06/26/18 07:21 06/26/18 07:21 General appearance: Present: cooperative, A&O X 2, pleasant, no acute distress, answers questions appropriately Exam: Patient continues to have some confusion noted during conversation. Answers most simple questions appropriately. - Head Head exam: Present: atraumatic, normocephalic - Eye Eye exam: Present: PERRL, conjuntiva pink, sclera anicteric Pupils: Present: PERRL - Neck Neck exam general surgery: Present: supple, trachea midline. Absent: lymphad enopathy - Respiratory Respiratory exam: Present: CTAB. Absent: accessory muscle use, rales, rhonchi, wheezes - Cardiovascular Cardiovascular exam: Present: RRR, +S1, +S2. Absent: diastolic murmur, gallop, rubs, systolic murmur - GI/Abdominal GI/Abdominal exam: Present: normal bowel sounds, soft, no peritoneal signs. Absent: distended, tenderness - Extremities Exam Extremities exam: Present: warm, radial pulses palpable and symmetrical. Absent: calf tenderness, cyanotic, pedal edema Additional comments: Continued complaints of slight pain during abduction of left shoulder. No obvious injury or deformity is noted. No edema - Back Exam Additional comments: Complaints of pain to mid back. No obvious injury, deformity or step-offs noted on exam. No tenderness. - Neurological Exam Neurological exam: Present: CN II-XII intact, no focal deficits. Absent: pronater drift, facial droop, speech deficit Additional comments: Patient continues to have moderate confusion noted during conversation. Patient able to answer most simple questions appropriately but does have difficulty with complex questioning. Able to follow commands appropriately. No focal neurological deficits noted on exam. - Skin Skin exam: Present: dry, intact Internal Medicine: Result - Labs CBC & Chem 7: 06/24/18 05:55 06/24/18 05:55 Consult Discharge Plan - Plan Referrals: Maggie Burks CNP [Primary Care Provider] -
[2018-06-26] MEDS: tiZANidine 4 MG TABLET PO PRN ×2 (10:59)
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
--- NOTE | 2018-06-26 11:55 | Discharge Summary ---
Orders not resulted at time of discharge: Pending orders 06/26/18 08:30 BMP [Basic Metabolic Panel] Routine Magnesium Routine Date of Encounter: 06/26/18 Time of Encounter: 11:52 - Discharge Diagnosis (1) Thoracic compression fracture Priority: Primary Status: Acute Comments: Patient had compression fractures of T6 and T7 thoracic vertebrae which per medical records show minimal loss of height. Patient had nonsurgical treatment at [facility] and was discharged with a TLSO brace that can be used for comfort when out of bed. Patient has continued complaints of pain to her thoracic area, but no deformity or injury noted. Denied tenderness. Patient has continued in physical therapy and progressed well. Patient will be discharged to home to follow-up with PCP and continued follow-up with trauma services at [facility]. Qualifiers: Encounter type: subsequent encounter Fracture type: closed Fracture healing: with routine healing Qualified Code(s): S22.000D - Wedge compression fracture of unspecified thoracic vertebra, subsequent encounter for fracture with routine healing (2) TBI (traumatic brain injury) Priority: Secondary Status: Acute Comments: Patient had a closed head injury as a result of her fall down multiple stairs. Patient had nonsurgical treatment while at an [facility]. Patient has remained confused since her accident, required a sitter to be used due to patient's spontaneous thought process and poor short-term memory. Patient has continued to attempt to get up out of bed on multiple occasions unassisted. Patient remains oriented 2 but not to time. Patient can answer most questions appropriately but becomes confused during conversation at times. No acute neurological deficits noted on exam. Patient continues to dissipate and therapy and progressed well. Patient will continue follow-up with PCP and trauma services at [facility] Qualifiers: Encounter type: subsequent encounter Loss of consciousness presence/duration: with LOC of unspecified duration Qualified Code(s): S06.9X9D - Unspecified intracranial injury with loss of consciousness of unspecified duration, subsequent encounter (3) Uncontrolled diabetes mellitus Priority: Secondary Status: Acute Comments: Glucose has been fairly well-controlled during her stay at this facility. Patient has had titration of long-acting insulin for coverage. We will continue on sliding scale coverage after discharge. Patient to continue follow-up with PCP Qualifiers: Diabetes mellitus type: type 2 Glycemic state: with hyperglycemia Qualified Code(s): E11.65 - Type 2 diabetes mellitus with hyperglycemia (4) Somatoform disorder Priority: Secondary Status: Acute Comments: Patient was seen by psychiatry with no further treatment ordered. Patient continue follow-up with PCP. Patient has been compliant with care during her stay but has had episodes of agitation Hospital course: Ms. Quinones is a 67 year old female - Time Spent with Patient Total time spent providing and/or coordinating discharge services: - Discharge Medications Home Medications: Gabapentin [Neurontin] 300 mg PO HS 11/23/16 [History] Insulin Glargine,Hum.rec.anlog [Lantus Solostar] 55 unit SQ QPM 11/23/16 [History] Losartan/HCTZ [Hyzaar 50-12.5 Tablet] 1 each PO BID 11/23/16 [History] metFORMIN [Glucophage] 1,000 mg PO BIDWM 11/23/16 [History] Cyclobenzaprine [Flexeril] 10 mg PO TID PRN 06/20/18 [History] Enoxaparin [Lovenox] 30 mg SQ Q12HR 06/20/18 [History] Ergocalciferol (VITAMIN D2) [Vitamin D2] 50,000 unit PO QWEEK 06/20/18 [History] OxyCODONE Immed Rel [Roxicodone 5 MG] 5 mg PO Q8HR PRN 06/20/18 [History] Allergies/Adverse Reactions: Allergy/AdvReac Type Severity Reaction Status Date / Time acetaminophen Allergy Swelling Verified 12/10/17 09:43 [From Contac Day/Night of Allergy/Sinus] Lip/Tongue/Throat butorphanol [From Stadol] Allergy See Verified 06/12/18 08:04 Comments dextromethorphan Allergy Swelling Verified 12/10/17 09:43 [From Contac Day/Night of Allergy/Sinus] Lip/Tongue/Throat diphenhydramine Allergy Swelling Verified 12/10/17 09:43 [From Contac Day/Night of Allergy/Sinus] Lip/Tongue/Throat pseudoephedrine Allergy Swelling Verified 12/10/17 09:43 [From Contac Day/Night of Allergy/Sinus] Lip/Tongue/Throat Date of admission: 06/20/18 17:48 Primary care physician: Maggie Burks CNP Consults: 06/20/18 18:50 Consult to Occupational Therapy [CONS] Routine Comment: Evaluate, develop and implement POC Reason for Consult: eval Does patient have active BEDREST order?: No Is patient medically & hemodynamically stable?: Yes Consult to Physical Medicine/Rehab [CONS] Routine Reason for Consult: fall Call Completed: Yes Consult to Physical Therapy [CONS] Routine Comment: Evaluate, develop and implement POC Reason for Consult: eval Does patient have active BEDREST order?: No Is patient medically & hemodynamically stable?: Yes Consult to Recreational Therapy [CONS] Routine Comment: Evaluate, develop and implement POC Consult to Rn Renal [CONS] Routine Reason for SW Consult: d/c planning Consult to Speech Therapy [CONS] Routine Comment: Evaluate, develop and implement POC Reason for Consult: speech impairment Call Completed: Yes 06/25/18 11:21 Consult to Psychology [CONS] Routine Consulting Provider: Geri Gloria Reason for Consult: Possible depression; adjustment disorder Call Completed: No Discharging clinician: Arthur Curiel - Constitutional Vitals: Temp Pulse Resp BP Pulse Ox 97.9 F 68 17 100/62 97 06/26/18 07:21 06/26/18 07:21 06/26/18 07:21 06/26/18 07:21 06/26/18 07:21 General appearance: Present: cooperative, A&O X 2, pleasant, no acute distress, answers questions appropriately Exam: Oriented 2 but not to time. Answers simple questions appropriately. Follows commands. At times any cuing. - Head Head exam: Present: atraumatic, normocephalic - Eye Eye exam: Present: PERRL, conjuntiva pink, sclera anicteric Pupils: Present: PERRL - Neck Neck exam general surgery: Present: supple, trachea midline. Absent: lymphadenopathy - Respiratory Respiratory exam: Present: CTAB. Absent: accessory muscle use, rales, rhonchi, wheezes - Cardiovascular Cardiovascular exam: Present: RRR, +S1, +S2. Absent: diastolic murmur, gallop, rubs, systolic murmur - GI/Abdominal GI/Abdominal exam: Present: normal bowel sounds, soft, no peritoneal signs. Absent: distended, tenderness - Extremities Exam Extremities exam: Present: warm, radial pulses palpable and symmetrical. Absent: calf tenderness, cyanotic, pedal edema - Back Exam Additional comments: Complain of pain to middle back no obvious injury, deformity or drop-offs noted. TLSO brace and use when out of bed. - Neurological Exam Neurological exam: Present: CN II-XII intact, no focal deficits. Absent: pronater drift, facial droop, speech deficit Additional comments: Patient continues to be confused. Oriented 2 but not to time. Patient is able to answer simple questions appropriately but at times becomes confused during conversation. Patient able to follow commands but at times requires cueing. No focal motor deficits noted on exam. No sensory deficits noted. - Skin Skin exam: Present: dry, intact - Patient Status Disposition: Home, Self-Care Condition: Good Functional capacity at discharge: uses cane/walker Overall status at discharge: patient is progressing back to baseline - Discharge Instructions Follow Up With: Maggie Burks CNP [Primary Care Provider] - - Diet and Activity Activity: ambulate only with your walker, as per physical therapy, increase activity as tolerated Diet: diabetic diet, low fat, low cholesterol, low salt diet
[2018-06-26 12:41] LABS: BUN/Creatinine Ratio 35 (6-26); Blood Urea Nitrogen 28 mg/dL (8-23); Calcium 9.4 mg/dL (8.6-10.3); Carbon Dioxide 21 mEq/L (23-29); Chloride 103 mEq/L (98-107); Glucose 109 mg/dL (70-105); Magnesium 1.7 mg/dL (1.6-2.6); Osmolality,Calculated 288 (280-300); Potassium 3.4 mEq/L (3.5-5.1); Sodium 136 mEq/L (136-145); eGFR For Non-African Americans > 60 (> 60)
[2018-06-26] MEDS ORDERED: Insulin DETEMIR 100 UNIT/ML X5UNITS SQ SCH (18:00)
[2018-06-26] MEDS ORDERED: Magnesium Oxide 400 MG TABLET PO SCH (21:00)
== END 2018-06-26 14:30 | disposition home or self-care (01) | DRG 561 ==
LOC: INPGRE 17:48